=== PATIENT | male | born 1970 | race Caucasian/White ===

== ENCOUNTER → 2019-12-25 15:24 | Outpatient (BNVA) | payer OTHER, SELFPAY | PROVIDERS: Family Provider Nurse Practitioner Family; PCP Nurse Practitioner Family; Visit Provider Nurse Practitioner Family | DX: M25.551 Pain in right hip (principal); M25.552 Pain in left hip | CPT/HCPCS: 73502 ==

== ENCOUNTER → 2019-12-29 08:34 | Outpatient (BNVA) | payer OTHER, SELFPAY | PROVIDERS: Family Provider Nurse Practitioner Family; PCP Nurse Practitioner Family; Visit Provider Nurse Practitioner Family | DX: E55.9 Vitamin D deficiency, unspecified (principal); I10 Essential (primary) hypertension; E78.2 Mixed hyperlipidemia; R53.83 Other fatigue | CPT/HCPCS: 80053; 80061; 81001; 82306; 83036; 84443; 85025 ==

== ENCOUNTER 2020-01-01 10:05 | Outpatient (CLI) | payer OTHER, SELFPAY ==
--- NOTE | 2020-01-01 10:13 | XRR_ITS ---
PROCEDURE INFORMATION: Exam: XR Lumbosacral Spine, 2 or 3 Views Exam date and time: 01/01/2020 10:30 AM Age: 49 years old Clinical indication: Patient HX: Chronic low back pain; Additional info: Lumbar back pain TECHNIQUE: Imaging protocol: XR of the lumbosacral spine, 2 or 3 views. COMPARISON: No relevant prior studies available. FINDINGS: Vertebrae: Anatomic alignment. No instability. Degenerative change. Vasculature: Vascular calcification. Soft tissues: Unremarkable as visualized. XR/XR lumbar spine f/e only [id number] IMPRESSION: Degenerative change.
== END 2020-01-01 10:06 | disposition home or self-care (01) ==
LOC: RAD 10:09
PROVIDERS: PCP Nurse Practitioner Family; Visit Provider Nurse Practitioner Family
DX: M54.5 Low back pain (principal)
CPT/HCPCS: 72120

== ENCOUNTER → 2020-01-15 09:23 | Outpatient (BNVA) | payer OTHER, SELFPAY | PROVIDERS: PCP Nurse Practitioner Family; Referring Provider Licensed Practical Nurse; Visit Provider Anesthesiology Pain Medicine | DX: M47.816 Spondylosis without myelopathy or radiculopathy, lumbar region (principal); M54.9 Dorsalgia, unspecified | CPT/HCPCS: 99213 ==

== ENCOUNTER 2020-02-08 15:07 | Outpatient (CLI) | payer OTHER, SELFPAY ==
--- NOTE | 2020-02-08 15:11 | MR_ITS ---
WS: [id number] MRI LUMBAR SPINE NONCONTRAST TECHNIQUE: Sagittal T1, T2 and STIR imaging. Axial T1 and T2 imaging. CLINICAL INFORMATION: BACK PAIN COMPARISON: None. FINDINGS: Mild lumbar curve. No acute compression. Disc space narrowing worse at L3-L4, L4-L5 and L5-S1. L1-L2: Normal. L2-L3: Normal. L3-L4: Mild annular bulging. Mild facet arthropathy. Spinal canal and foramen are patent. L4-L5: Mild disc bulging with slight effacement of ventral thecal sac. Slight narrowing of the right subarticular recess. Mild right and no significant left foraminal narrowing. Mild facet arthropathy. L5-S1: Tiny shallow central protrusion with slight effacement of ventral thecal sac. Spinal canal and foramen are patent. Visualized pelvic bony structures: Normal. Paravertebral soft tissues: Normal. MR/MR lumbar spine wo con* [id number] IMPRESSION: 1. Mild lumbar curve. No acute compression. 2. Mild disc bulging worse at L3-L4, L4-L5 and L5-S1 with slight effacement of ventral thecal sac. 3. No significant spinal canal or foraminal narrowing. 4. Shallow central protrusion L5-S1 with slight effacement of ventral thecal s ac. 5. Mild facet arthropathy L3-L5.
== END 2020-02-08 15:08 | disposition home or self-care (01) ==
LOC: RADWPI 15:09
PROVIDERS: Family Provider Nurse Practitioner Family; PCP Nurse Practitioner Family; Visit Provider Licensed Practical Nurse
DX: M51.9 Unspecified thoracic, thoracolumbar and lumbosacral intervertebral disc disorder (principal); M54.9 Dorsalgia, unspecified; M47.816 Spondylosis without myelopathy or radiculopathy, lumbar region; M51.27 Other intervertebral disc displacement, lumbosacral region
CPT/HCPCS: 72148

== ENCOUNTER → 2020-02-12 12:55 | Outpatient (BNVA) | payer OTHER, SELFPAY | PROVIDERS: PCP Nurse Practitioner Family; Visit Provider Anesthesiology Pain Medicine | DX: M47.816 Spondylosis without myelopathy or radiculopathy, lumbar region (principal); M54.9 Dorsalgia, unspecified | CPT/HCPCS: 64493; 64494; 64495; J3490 ==

== ENCOUNTER → 2020-02-26 09:44 | Outpatient (BNVA) | payer OTHER, SELFPAY | PROVIDERS: PCP Nurse Practitioner Family; Visit Provider Anesthesiology Pain Medicine | DX: M51.17 Intervertebral disc disorders with radiculopathy, lumbosacral region (principal); M47.816 Spondylosis without myelopathy or radiculopathy, lumbar region; M54.9 Dorsalgia, unspecified; M25.552 Pain in left hip | CPT/HCPCS: 99214 ==

== ENCOUNTER → 2020-04-22 12:43 | Outpatient (BNVA) | payer OTHER, SELFPAY | PROVIDERS: PCP Nurse Practitioner Family; Visit Provider Anesthesiology Pain Medicine | DX: M47.816 Spondylosis without myelopathy or radiculopathy, lumbar region (principal); M51.17 Intervertebral disc disorders with radiculopathy, lumbosacral region; M54.9 Dorsalgia, unspecified | CPT/HCPCS: 64635; 64636; 99212; J1030 ==

== ENCOUNTER → 2020-05-06 12:41 | Outpatient (BNVA) | payer OTHER, SELFPAY | PROVIDERS: PCP Nurse Practitioner Family; Visit Provider Anesthesiology Pain Medicine | DX: M47.816 Spondylosis without myelopathy or radiculopathy, lumbar region (principal); M54.9 Dorsalgia, unspecified | CPT/HCPCS: 64635; 64636; J1030 ==

== ENCOUNTER → 2020-05-20 12:42 | Outpatient (BNVA) | payer OTHER, SELFPAY | PROVIDERS: PCP Nurse Practitioner Family; Visit Provider Anesthesiology Pain Medicine | DX: M47.816 Spondylosis without myelopathy or radiculopathy, lumbar region (principal); M51.17 Intervertebral disc disorders with radiculopathy, lumbosacral region; M54.9 Dorsalgia, unspecified | CPT/HCPCS: 99213 ==

== ENCOUNTER → 2020-08-19 10:41 | Outpatient (BNVA) | payer OTHER, SELFPAY | PROVIDERS: PCP Nurse Practitioner Family; Visit Provider Anesthesiology Pain Medicine | DX: M51.17 Intervertebral disc disorders with radiculopathy, lumbosacral region (principal); M54.9 Dorsalgia, unspecified; M47.816 Spondylosis without myelopathy or radiculopathy, lumbar region | CPT/HCPCS: 99214 ==

== ENCOUNTER → 2020-08-30 11:31 | Outpatient (BNVA) | payer OTHER, SELFPAY | PROVIDERS: PCP Nurse Practitioner Family; Visit Provider Nurse Practitioner Family | DX: M19.90 Unspecified osteoarthritis, unspecified site (principal); I10 Essential (primary) hypertension; E55.9 Vitamin D deficiency, unspecified; E78.2 Mixed hyperlipidemia; K92.1 Melena; N64.4 Mastodynia; Z79.899 Other long term (current) drug therapy | CPT/HCPCS: 80053; 80061; 81003; 82306; 83036; 84443; 85025; 85651; 86140; 86431 ==

== ENCOUNTER → 2020-09-15 12:35 | Outpatient (BNVA) | payer OTHER, SELFPAY | PROVIDERS: PCP Nurse Practitioner Family; Visit Provider Anesthesiology Pain Medicine | DX: M51.17 Intervertebral disc disorders with radiculopathy, lumbosacral region (principal); M47.816 Spondylosis without myelopathy or radiculopathy, lumbar region; M79.18 Myalgia, other site; M54.9 Dorsalgia, unspecified | CPT/HCPCS: 20553; 99214; J1030; J3490 ==

== ENCOUNTER → 2020-10-04 08:29 | Outpatient (BNVA) | payer OTHER, SELFPAY | PROVIDERS: PCP Nurse Practitioner Family; Visit Provider Internal Medicine | DX: Z01.812 Encounter for preprocedural laboratory examination (principal); K22.70 Barrett's esophagus without dysplasia; Z20.822 Contact with and (suspected) exposure to COVID-19 | CPT/HCPCS: 87635 ==

== ENCOUNTER → 2020-10-05 09:17 | Outpatient (BNVA) | payer OTHER, SELFPAY | PROVIDERS: PCP Nurse Practitioner Family; Visit Provider Anesthesiology Pain Medicine | DX: M79.18 Myalgia, other site (principal); M54.9 Dorsalgia, unspecified; M47.816 Spondylosis without myelopathy or radiculopathy, lumbar region | CPT/HCPCS: 20553; 99214; J1030; J3490 ==

== ENCOUNTER 2020-10-07 07:57 | Day surgery (SDC) | payer OTHER, SELFPAY ==
[2020-10-04 10:43] VITALS: BMI 31.1
[2020-10-07 08:30] VITALS: BP 154/109; PULSE 67; RESP 18; TEMP 36.8; O2SAT 99
[2020-10-07] MEDS: sodium chloride 0.9% 1,000 ML 30 ML IV (08:37)
--- NOTE | 2020-10-07 08:49 | ANES.PREANE2 ---
Pre-Anesthetic Assessment Pre-Anesthetic Assessment: Height/Weight: Height 1.8 m Weight 101.151 kg Temp Pulse Resp BP Pulse Ox 98.2 F 67 18 154/109 99 10/07/20 08:30 10/07/20 08:30 10/07/20 08:30 10/07/20 08:30 10/07/20 08:30 Preop Diagnosis: Barrets Esophagus Proposed Procedure: Operation Date: 10/07/20 09:00 Proposed Procedures p EGD 93108 K22.70(Not Applicable) - Rodo Hutchinson MD Familial anesthetic complications: none Was Beta Loreta taken within 24 hours: Yes Was Clonidine taken within 24 hours: N/A Last intake: Intake Last Liquid Date 10/06/20 Last Solid Date 10/06/20 Social: Social History: Alcohol (social 1x month) and Tobacco (Cannibis daily for stomach issues.) Exam: Pre-Anes Outpt Exam: alert, oriented x 3, clear to auscultation bilaterally and regular rate & rhythm Airway: Submandibular: WNL Cervical ROM: WNL MP: 1 Dentition: Chipped History/ROS: No significant history except as noted Pulmonary: Pulmonary: Cough and SOB (with activity) CV/HEM: CV/HEM: HTN : : None reported Hepatic: Hepatic: None reported GI: GI: GERD and Hiatus hernia Comments: martin's esophagus. Metabolic: Metabolic: DM (pre-diabetic per patient.), Hyperlipidemia and Morbid obesity Musc/skel: Musc/skel: Lower Back Pain and OA/DJD Neuropsych: Neuropsych: Anxiety and Depression Anesthetic Plan: ASA status: 3 Anesthesia: Anesthesia Evaluation and MAC Risk of > 500 ml blood loss (7ml/kg in children): No Meds/Allergies Current Medications: Current Medications Generic Name Dose Route Start Last Admin Trade Name Freq PRN Reason Stop Dose Admin Sodium Chloride 1,000 mls @ 30 ml s/hr 10/07/20 08:15 10/07/20 08:37 Sodium Chloride 0.9% IV 10/08/20 08:14 30 mls/hr .Q24H ANDREW Administration PFSH Anesthesia PFSH: Medical History Arthritis Constipation Essential hypertension Hip pain Lumbar disc disease Medication management Medication management Mixed hyperlipidemia Muscle spasm Tinea capitis Vitamin D deficiency Surgical History History of decompression of ulnar nerve Family History Mother Cancer Sister Cancer Other Diabetes Denies family history of Dementia Social History Smoking and tobacco status: former smoker Alcohol intake: never Marital status: Current occupational status: employed History of recent travel: No Data Anesthesia Cardiac Studies: No Data to Display
--- NOTE | 2020-10-07 09:11 | W.PM.OPSUD ---
Surgery/Procedure H&P Update DATE OF PROCEDURE: October 07, 2020 DATE H&P PERFORMED: 09/28/20 PREOP DIAGNOSIS: Barrets Esophagus PLANNED PROCEDURE: Operation Date: 10/07/20 09:00 Proposed Procedures p EGD 53065 K22.70(Not Applicable) - Rodo Hutchinson MD
[2020-10-07 09:34] VITALS: BP 147/93; PULSE 68; RESP 16; TEMP 37; O2SAT 97
--- NOTE | 2020-10-07 09:37 | ANE.PACU2 ---
Inpatient post-anesthesia follow up: Airway intact: Yes Vital signs: Temperature 98.2 F Pulse Rate 67 Respiratory Rate 18 Blood Pressure 154/109 Pulse Oximetry 99 Oxygen Delivery Me thod Room Air Oxygen Flow Rate Fraction of Inspir ed Oxygen Hydration adequate: Yes Nausea and vomiting: No Mental status: Baseline
[2020-10-07 09:50] VITALS: BP 156/82; PULSE 75; RESP 18; O2SAT 98
--- NOTE | 2020-10-07 10:17 | ANE.PACU2 ---
Inpatient post-anesthesia follow up: Airway intact: Yes Vital signs: Temperature 98.6 F Pulse Rate 75 Respiratory Rate 18 Blood Pressure 156/82 Pulse Oximetry 98 Oxygen Delivery Me thod Room Air Oxygen Flow Rate Fraction of Inspir ed Oxygen Hydration adequate: Yes Nausea and vomiting: No Pain level: 1 Mental status: Baseline
== END 2020-10-07 09:52 | disposition home or self-care (01) ==
PROVIDERS: PCP Nurse Practitioner Family; Visit Provider Internal Medicine
PROC: 0DJ08ZZ Inspection of Upper Intestinal Tract, Via Natural or Artificial Opening Endoscopic (ICD-10-PCS; CPT 43235; principal; 2020-10-07 09:00)
DX: K22.70 Barrett's esophagus without dysplasia (principal); M19.90 Unspecified osteoarthritis, unspecified site; I10 Essential (primary) hypertension; E78.2 Mixed hyperlipidemia; Z87.891 Personal history of nicotine dependence; E11.9 Type 2 diabetes mellitus without complications; E66.01 Morbid (severe) obesity due to excess calories; Z68.31 Body mass index [BMI] 31.0-31.9, adult
CPT/HCPCS: 43239; 88305; 96360; J2704; J7030

== ENCOUNTER → 2020-10-21 12:43 | Outpatient (BNVA) | payer OTHER, SELFPAY | PROVIDERS: PCP Nurse Practitioner Family; Visit Provider Anesthesiology Pain Medicine | DX: G89.29 Other chronic pain (principal); M53.3 Sacrococcygeal disorders, not elsewhere classified; M54.9 Dorsalgia, unspecified | CPT/HCPCS: G0260; J1040; J3490 ==

== ENCOUNTER → 2020-10-27 11:42 | Outpatient (BNVA) | payer OTHER, SELFPAY | PROVIDERS: PCP Nurse Practitioner Family; Visit Provider Nurse Practitioner Family | DX: J22 Unspecified acute lower respiratory infection (principal); R06.2 Wheezing; R49.0 Dysphonia; R06.02 Shortness of breath | CPT/HCPCS: 71046 ==

== ENCOUNTER → 2020-11-01 10:40 | Outpatient (BNVA) | payer OTHER, SELFPAY | PROVIDERS: PCP Nurse Practitioner Family; Visit Provider Anesthesiology Pain Medicine | DX: M47.816 Spondylosis without myelopathy or radiculopathy, lumbar region (principal); M54.9 Dorsalgia, unspecified; Z79.891 Long term (current) use of opiate analgesic | CPT/HCPCS: 99213 ==

== ENCOUNTER 2020-11-02 13:31 | Outpatient (CLI) | payer OTHER, SELFPAY ==
--- NOTE | 2020-11-02 13:39 | XR_ITS ---
WS: [id number] Lumbar spine, AP, both obliques, L5-S1 spot, flexion, extension and neutral lateral position, 11/03/19 21 Clinical Data: M51.9 - Unspecified thoracic, thoracolumbar and lumbosacral intervertebral disc disord er Comparison: Lumbar spine, 01/01/2020. Findings: No compression fractures or subluxation is seen. Degenerative disc narrowing at L3-L4, L4-L5 and L5-S 1. There is osteoarthritic change of the anterior aspect of the L3-L5 vertebral bodies. The transvers e processes and SI joints are normal. The oblique films show no spondylolysis. On flexion and extension there is no limitation of motion or subluxation. XR/XR lumbar spine 6V w f/e [id number] Impression: 1. Degenerative disc disease and osteoarthritis from L3 through S1. 2. Negative for spondylolysis. 3. Negative for limitation of motion or subluxation on flexion or extension.
== END 2020-11-02 13:32 | disposition home or self-care (01) ==
LOC: RAD 13:34
PROVIDERS: PCP Nurse Practitioner Family; Visit Provider Nurse Practitioner Family
DX: M51.9 Unspecified thoracic, thoracolumbar and lumbosacral intervertebral disc disorder (principal); M51.36 Other intervertebral disc degeneration, lumbar region; M47.817 Spondylosis without myelopathy or radiculopathy, lumbosacral region
CPT/HCPCS: 72114

== ENCOUNTER → 2020-11-15 11:02 | Outpatient (BNVA) | payer OTHER, SELFPAY | PROVIDERS: PCP Nurse Practitioner Family; Visit Provider Anesthesiology Pain Medicine | DX: G89.29 Other chronic pain (principal); M54.42 Lumbago with sciatica, left side; M54.41 Lumbago with sciatica, right side; M51.36 Other intervertebral disc degeneration, lumbar region; M47.816 Spondylosis without myelopathy or radiculopathy, lumbar region; Z79.891 Long term (current) use of opiate analgesic | CPT/HCPCS: 99214 ==

== ENCOUNTER 2020-11-30 08:36 | Outpatient (CLI) | payer OTHER, SELFPAY ==
--- NOTE | 2020-11-30 09:43 | CT_ITS ---
WS: [id number] CT ABDOMEN PELVIS TECHNIQUE: Contrast-enhanced CT of the abdomen and pelvis with coronal and sagittal reformatted image s. CLINICAL INFORMATION: R19.00 - Intra-abdominal and pelvic swelling, mass and lump, unspecified site COMPARISON: None. DLP: 1799.[address] scans at [facility] use at least one of these dose optimization techniques: automat ed exposure control; mA and/or kV adjustment per patient size (includes targeted exams where dose is matched to clinical indication); or iterative reconstruction. FINDINGS: Diffuse fatty infiltration of the liver. Mild hepatomegaly. Normal portal vein and splenic vein. Norm al GE junction. A few splenic granulomas. Fatty atrophy of the pancreas. Adrenal glands are normal. N ormal renal parenchymal enhancement. No hydronephrosis. Both ureters are decompressed. Mild aortic ca lcification. Normal caliber abdominal aorta. Lung bases are well aerated. Ectatic ventral abdominal wall with rectus abdominis diastases. Diastases measures approximately 4.8 cm in transverse dimension. Diastases extends from the level of the xiphoid to the sacrum. Tiny fat-c ontaining umbilical hernia. No herniated bowel. Normal sigmoid colon. No evidence of small or large bowel obstruction. Disc space narrowing worse at L3-L4 L4-L5 and L5-S1. CT/CT abdomen pelvis w con* [id number] IMPRESSION: 1. Mild hepatomegaly with diffuse fatty infiltration. 2. Ectatic ventral abdominal wall with rectus abdominis diastases. Inter-recti diastases measures approximately 4.8 cm. Diastases extends from the xiphoid to the sacrum. 3. Incidental fat-containing umbilical hernia. 4. Normal caliber abdominal aorta. 5. No abdominal or pelvic lymphadenopathy. 6. No hydronephrosis in either kidney. 7. Mild disc space narrowing L3-L4 L4-L5 and L5-S1.
[2020-11-30] MEDS: iohexol 300 mg/mL 50 mL Btl PO (09:44)
[2020-11-30] MEDS: iohexol 300 mg/mL 100 mL Btl IV (11:05)
== END 2020-11-30 08:37 | disposition home or self-care (01) ==
LOC: RADWPI 08:55 → RAD 10:06
PROVIDERS: PCP Nurse Practitioner Family; Visit Provider Surgery
DX: R19.00 Intra-abdominal and pelvic swelling, mass and lump, unspecified site (principal); R16.0 Hepatomegaly, not elsewhere classified; K76.0 Fatty (change of) liver, not elsewhere classified; K42.9 Umbilical hernia without obstruction or gangrene
CPT/HCPCS: 74177; Q9967

== ENCOUNTER 2020-11-30 08:48 | Outpatient (CLI) | payer OTHER, SELFPAY ==
--- NOTE | 2020-11-30 08:59 | MR_ITS ---
WS: [id number] MRI LUMBAR SPINE NONCONTRAST TECHNIQUE: Sagittal T1, T2 and STIR imaging. Axial T1 and T2 imaging. CLINICAL INFORMATION: M51.9 - Unspecified thoracic, thoracolumbar and lumbosacral intervertebral disc disorder COMPARISON: MRI January 2020 FINDINGS: Mild lumbar curve. No acute compression. No high-grade central canal stenosis. Disc space narrowing w orse at L3-L4, L4-L5, and L5-S1. L1-L2: Normal L2-L3: No significant disc bulging. Mild facet arthropathy. Spinal canal and foramen are patent. L3-L4: Mild disc space narrowing. Mild facet arthropathy. Spinal canal and foramen are patent. L4-L5: Mild disc bulging with mild disc space narrowing. Mild facet arthropathy. Spinal canal and for amen are patent. L5-S1: Mild disc bulging with osteophytic ridging eccentric to the right. Slight contact of the trave rsing right S1 nerve root. Mild facet arthropathy. Spinal canal is patent. Foramen are patent Visualized pelvic bony structures: Normal. Paravertebral soft tissues: Normal. No significant changes since January 2020 MR/MR lumbar spine wo con* [id number] IMPRESSION: 1. Mild lumbar curve. No acute compression. No high-grade central canal stenos is. 2. Right pericentral disc bulge L5-S1 slightly contacts the traversing S1 nerv e root. This is unchanged from January 2020. 3. Mild facet arthropathy L3-L5. 4. Overall no significant changes since January 2020.
== END 2020-11-30 08:49 | disposition home or self-care (01) ==
LOC: RADWPI 08:50
PROVIDERS: PCP Nurse Practitioner Family; Visit Provider Nurse Practitioner Family
DX: M51.9 Unspecified thoracic, thoracolumbar and lumbosacral intervertebral disc disorder (principal); M47.816 Spondylosis without myelopathy or radiculopathy, lumbar region; M51.27 Other intervertebral disc displacement, lumbosacral region
CPT/HCPCS: 72148

== ENCOUNTER → 2020-12-07 10:57 | Outpatient (BNVA) | payer OTHER, SELFPAY | PROVIDERS: PCP Nurse Practitioner Family; Visit Provider Anesthesiology Pain Medicine | DX: G89.29 Other chronic pain (principal); M54.42 Lumbago with sciatica, left side; M54.41 Lumbago with sciatica, right side; M47.816 Spondylosis without myelopathy or radiculopathy, lumbar region | CPT/HCPCS: 99214 ==

== ENCOUNTER → 2020-12-08 12:48 | Outpatient (BNVA) | payer OTHER, SELFPAY | PROVIDERS: PCP Nurse Practitioner Family; Visit Provider Anesthesiology Pain Medicine | DX: G89.29 Other chronic pain (principal); M79.18 Myalgia, other site; M54.16 Radiculopathy, lumbar region; M54.42 Lumbago with sciatica, left side; M54.41 Lumbago with sciatica, right side | CPT/HCPCS: 20552; 64483; 64484; 77002; J1030; J1100; J3490 ==

== ENCOUNTER → 2020-12-22 13:05 | Outpatient (BNVA) | payer BC, SELFPAY | PROVIDERS: PCP Nurse Practitioner Family; Visit Provider Anesthesiology Pain Medicine | DX: G89.29 Other chronic pain (principal); M54.42 Lumbago with sciatica, left side; M54.41 Lumbago with sciatica, right side; M47.816 Spondylosis without myelopathy or radiculopathy, lumbar region; Z87.891 Personal history of nicotine dependence; Z79.899 Other long term (current) drug therapy | CPT/HCPCS: 99214 ==

== ENCOUNTER → 2021-01-06 12:44 | Outpatient (BNVA) | payer BC, SELFPAY | PROVIDERS: PCP Nurse Practitioner Family; Visit Provider Anesthesiology Pain Medicine | DX: G89.29 Other chronic pain (principal); M51.17 Intervertebral disc disorders with radiculopathy, lumbosacral region; M47.816 Spondylosis without myelopathy or radiculopathy, lumbar region; M54.9 Dorsalgia, unspecified; Z87.891 Personal history of nicotine dependence | CPT/HCPCS: 64635; 64636; J1030 ==

== ENCOUNTER → 2021-01-20 09:48 | Outpatient (BNVA) | payer BC, SELFPAY | PROVIDERS: PCP Nurse Practitioner Family; Visit Provider Anesthesiology Pain Medicine | DX: G89.29 Other chronic pain (principal); M79.18 Myalgia, other site; M51.17 Intervertebral disc disorders with radiculopathy, lumbosacral region; M47.816 Spondylosis without myelopathy or radiculopathy, lumbar region; Z87.891 Personal history of nicotine dependence | CPT/HCPCS: 20553; 99213; J1030; J3490 ==

== ENCOUNTER → 2021-02-17 10:37 | Outpatient (BNVA) | payer BC, SELFPAY | PROVIDERS: PCP Nurse Practitioner Family; Visit Provider Anesthesiology Pain Medicine | DX: G89.29 Other chronic pain (principal); M79.18 Myalgia, other site; M51.17 Intervertebral disc disorders with radiculopathy, lumbosacral region; M47.816 Spondylosis without myelopathy or radiculopathy, lumbar region; Z79.891 Long term (current) use of opiate analgesic | CPT/HCPCS: 20553; 99214; J1030; J3490 ==

== ENCOUNTER → 2021-04-14 12:40 | Outpatient (BNVA) | payer BC, SELFPAY | PROVIDERS: PCP Nurse Practitioner Family; Visit Provider Anesthesiology Pain Medicine | DX: G89.29 Other chronic pain (principal); M51.17 Intervertebral disc disorders with radiculopathy, lumbosacral region; M47.816 Spondylosis without myelopathy or radiculopathy, lumbar region; Z79.891 Long term (current) use of opiate analgesic | CPT/HCPCS: 99213 ==

== ENCOUNTER 2021-04-24 18:03 | Emergency (ER) | payer BC, SELFPAY ==
[2021-04-24 18:32] VITALS: BP 129/85; PULSE 98; RESP 18; TEMP 36.7; O2SAT 98; BMI 27.8
--- NOTE | 2021-04-24 18:45 | ED_ITS ---
Documented by User: RUPALI Howard 04/24/21 20:58 HPI - Abdominal Pain General: Chief Complaint: Abdominal Pain Stated Complaint: ABD PAIN Time Seen by Provider: 04/24/21 18:44 History of Present Illness: HPI narrative: 51-year-old male patient comes in today with complaints of gastric discomfort. Patient reports for the last 3 days he has had significant abdominal pain that does improve with some positioning. Patient is also reported diarrhea for the last 3 days. Patient was concerned that he may have been exposed to infection when he moved his dog that he found when he got home on Saturday last week. Patient also has a history of Caballero's esophagus which he gets treated for and also received some pain medication for chronic back and shoulder pain. Patient appears in mild to moderate pain. Patient appears well. Associated Symptoms: Reports diarrhea Review of Systems General: Reports: 10 or more systems reviewed and unremarkable except in HPI and below GI: Reports: abdominal pain and diarrhea PFS ED PFSH: Medical History (Updated 04/24/21 @ 20:52 by RUPALI Howard) Abdominal pain Arthritis Constipation Essential hypertension Hip pain Lower respiratory infection Lumbar disc disease Medication management Medication management Mixed hyperlipidemia Muscle spasm Tinea capitis Ventral hernia Vitamin D deficiency Surgical History History of decompression of ulnar nerve Family History Mother Cancer Sister Cancer Other Diabetes Denies family history of Dementia Social History Smoking and tobacco status: current some day smoker Second hand smoke exposure: No Alcohol intake: never Marital status: Current occupational status: employed History of recent travel: No Physical Exam Const: COMMON NORMALS: no acute distress and patient oriented x3 GENERAL APPEARANCE: cooperative HENMT: COMMON NORMALS: normocephalic and Normal external nose present HEAD & SCALP: normal to inspection and normocephalic NOSE: Normal external nose present and Normal nares present MOUTH: Normal oral and palatal mucosa presen t THROAT: posterior oropharynx normal Eye: GENERAL EYE: appearance normal, both eyes and all related structures Neck/C-Spine: COMMON NORMALS: full ROM Lymph: LYMPHATIC: no lymphadenopathy noted Chest: COMMONS NORMALS: normal inspection of the chest Resp: COMMON NORMALS: normal respiratory effort and clear to auscultation bilaterally EFFORT & INSPECTION: Yes able to speak in complete sentences AUSCULTATION: clear to auscultation bilaterally Cardio: COMMON NORMALS: regular rate and regular rhythm RATE: regular rate RHYTHM: regular rhythm GI: AUSCULTATION: Yes Hyperactive bowel sounds present PALPATION: Yes Firmness to palpation present (GI) and Yes Tenderness to palpation present (GI) (mild generalized) : COMMON NORMALS: Yes no CVA tenderness BLADDER/KIDNEY EXAM: Yes no CVA tenderness Back/Pelvis: COMMON NORMALS: no CVA tenderness and thoracic and lumbar spine normal to inspection Extremity: COMMON NORMALS: normal to inspection Neuro: COMMON NORMALS: patient oriented x3 and moves all extremities Psych: COMMON NORMALS: mental status grossly normal and cooperative Skin: COMMON NORMALS: no rashes or lesions noted GENERAL SKIN EXAM: no rashes or lesions noted Course Vital Signs: Vital signs: Vital Signs Temperature 98.1 F 04/24/21 18:32 Pulse Rate 85 04/24/21 20:49 Respiratory Rate 18 04/24/21 20:49 Blood Pressure 130/83 04/24/21 20:49 Pulse Oximetry 96 04/24/21 20:49 MDM - Abdominal Pain MDM Narrative: Medical decision making narrative: 51-year-old male patient comes in with some generalized abdominal pain and diarrhea for 3 days. On exam patient appears well. Patient appears in mild discomfort. Bowel sounds are hyperactive. Differential diagnosis includes but not limited to gastroenteritis, colitis, diverticulitis. Laboratory values noted a mild elevation in white count at 10.8. CMP was unremarkable. Lipase was normal. Urinalysis was unremarkable. CT of the abdomen pelvis noted a colitis. Reviewed exam with patient recommended treatment with Cipro and Flagyl for the next 5 days. Encourage plenty of fluids and monitoring for worsening symptoms such as high fever or blood in vomit or stool. Patient reported understanding and agreed to plan. Patient did have some improvement in pain and discomfort with 2 mg of morphine, 4 of ondansetron, and 1 L of IV fluids. Lab Data: Labs: Lab Results 04/24/21 04/24/21 04/24/21 19:10 19:10 19:10 WBC 10.8 10^3/uL H 10 ^3/uL (4.0-10.0) RBC 5.53 10^6/uL H 10 ^6/uL (4.1-5.3) Hgb 17.3 g/dL H g/dL (11.7-16.6) Hct 49.6 % % (42.0-52.0) MCV 89.7 fl fl (80-94) MCH 31.3 pg pg (28.0-34.0) MCHC 34.9 g/dL g/dL (30.0-36.0) RDW 12.5 % % (12.1-15.1) Plt Count 284 10^3/cmm 10^3 /cmm (130-400) MPV 10.5 fL H fL (7.4-10.4) Neut % (Auto) 52.7 % % Lymph % (Auto) 30.6 % % Band[place] % (Auto) 12.0 % % Eos % (Auto) 3.7 % % Baso % (Auto) 0.4 % % Neut # (Auto) 5.68 10^3/uL 10^3 /uL (1.8-7.7) Lymph # (Auto) 3.3 10^3/uL 10^3/ uL (0.8-4.8) Band[place] # (Auto) 1.3 10^3/uL H 10^ 3/uL (0.2-0.9) Eos # (Auto) 0.4 10^3/uL 10^3/ uL (0.0-0.8) Baso # (Auto) 0.0 10^3/uL 10^3/ uL (0.0-0.1) Nucleated RBC % (a uto) 0 % % Nucleated RBCs # 0.0 /100WBC /100W BC Sodium 138 mmol/L mmol/L (136-145) Potassium 4.4 mmol/L mmol/L (3.5-5.1) Chloride 100 mmol/L mmol/L (98-107) Carbon Dioxide 23 mmol/L mmol/L (22-29) Anion Gap 19.4 H (5-19) BUN 13 mg/dL mg/dL (6-20) Creatinine 0.9 mg/dL mg/dL (0.7-1.2) GFR Calculation 88.6 mL/min L mL/ min (90-130) Glucose 101 mg/dL mg/dL (65-115) Calculated Osmolal ity 286 mOsm/kg mOsm/ kg (285-295) Lactic Acid 1.9 mmol/L mmol/L (0.5-2.2) Calcium 10.1 mg/dL mg/dL (8.5-10.5) Total Bilirubin 0.5 mg/dL mg/dL (0.15-1.2) AST 22 U/L U/L (0-40) ALT 26 U/L U/L (0-41) Alkaline Phosphata se 130 IU/L IU/L (40-130) Total Protein 7.4 g/dL g/dL (6.6-8.7) Albumin 5.0 g/dL g/dL (3.5-5.2) Globulin 2.4 g/dL g/dL (1.3-4.6) Lipase 21 U/L U/L (13-60) Urine Color Urine Appearance Urine pH Ur Specific Gravit y Urine Protein Urine Glucose (UA) Urine Ketones Urine Blood Urine Nitrate Urine Bilirubin Urine Urobilinogen Ur Leukocyte Minal ase 04/24/21 20:45 WBC RBC Hgb Hct MCV MCH MCHC RDW Plt Count MPV Neut % (Auto) Lymph % (Auto) [place] % (Auto) Eos % (Auto) Baso % (Auto) Neut # (Auto) Lymph # (Auto) [place] # (Auto) Eos # (Auto) Baso # (Auto) Nucleated RBC % (a uto) Nucleated RBCs # Sodium Potassium Chloride Carbon Dioxide Anion Gap BUN Creatinine GFR Calculation Glucose Calculated Osmolal ity Lactic Acid Calcium Total Bilirubin AST ALT Alkaline Phosphata se Total Protein Albumin Globulin Lipase Urine Color Yellow (Yellow) Urine Appearance Clear (CLEAR) Urine pH 5 (5-7) Ur Specific Gravit y 1.020 (1.005-1.030) Urine Protein Neg (Negative) Urine Glucose (UA) Norm (Normal) Urine Ketones Negative (Negative) Urine Blood Neg (Negative) Urine Nitrate Negative (Negative) Urine Bilirubin Neg (Negative) Urine Urobilinogen Norm mg/dL mg/dL (Negative) Ur Leukocyte Minal ase Negative (Negative) Discharge Plan Discharge Patient Disposition: Home Clinical Impression: Colitis Condition: Stable Prescriptions: New metronidazole 500 mg tablet 500 mg PO BID 5 Days Qty: 10 RF: 0 Cipro 500 mg tablet 500 mg PO BID Qty: 10 RF: 0 No Action medical THC as directed RF: 0 Advair HFA 230-21 mcg/actuation HFA aerosol inhaler 2 inh inhalation BID 90 Days Qty: 8 RF: 1 gabapentin 600 mg tablet 600 mg PO TID Qty: 90 RF: 1 tizanidine 4 mg tablet 4 mg PO BID PRN (Reason: muscle spasticity) Qty: 60 RF: 0 tramadol 50 mg tablet 50 mg PO BID PRN (Reason: pain) Qty: 45 RF: 1 carvedilol [Coreg] 3.125 mg tablet 3.125 mg PO DAILY 90 Days Qty: 90 RF: 1 polyethylene glycol 3350 [Miralax] 17 gram/dose powder 17 g PO DAILY 90 Days Qty: 1530 RF: 1 rosuvastatin 10 mg tablet 10 mg PO DAILY Qty: 30 RF: 5 losartan 50 mg tablet See Rx Instructions .ROUTE .COMPLEX Qty: 90 RF: 1 celecoxib 100 mg capsule See Rx Instructions .ROUTE .COMPLEX Qty: 60 RF: 3 docusate sodium 100 mg capsule 100 mg PO BID 90 Days Qty: 180 RF: 1 Zyrtec 10 mg capsule 10 mg PO DAILY PRN (Reason: allergy symptoms) Qty: 90 RF: 1 Dexilant 60 mg capsule,biphase delayed releas See Rx Instructions .ROUTE .COMPLEX Qty: 90 RF: 1 albuterol sulfate 90 mcg/actuation HFA aerosol inhaler See Rx Instructions .ROUTE .COMPLEX Qty: 8.5 RF: 2 hydrochlorothiazide 12.5 mg tablet See Rx Instructions .ROUTE .COMPLEX Qty: 90 RF: 0 Discharge Orders: Discharge ED (Routine); Ordered 04/24/21 Ordered By: Fortunato Pavon Referrals: JOHN Zuniga, COPY LATHE OPERATOR [Primary Care Provider] - Discharge Diet: Usual diet Discharge Activity: Increase activity as tolerated Patient Instructions: Diarrhea - Adult, Opioid Safety Activity Restrictions/Additional Instructions: Take antibiotics as directed. Drink plenty of fluids. Use [id number] Imodium to help with diarrhea as needed. Monitor for fever. If you start work running a really high fever greater than 100.4 or having blood in vomit or stool you need to be reevaluated. Follow-up with primary care as needed. Return to the ER for new concerns. Coding Level of Care Code ED Nuisance Wildlife Specialist for Chg Fwd Exam Comprehensive Documented by User: Kassandra Cuenca MD 04/25/21 02:26 HPI - Abdominal Pain General: Chief Complaint: Abdominal Pain Stated Complaint: ABD PAIN Time Seen by Provider: 04/24/21 18:44 PFSH ED PFSH: Medical History (Updated 04/24/21 @ 20:52 by RUPALI Howard) Abdominal pain Arthritis Constipation Essential hypertension Hip pain Lower respiratory infection Lumbar disc disease Medication management Medication management Mixed hyperlipidemia Muscle spasm Tinea capitis Ventral hernia Vitamin D deficiency Surgical History History of decompression of ulnar nerve Family History Mother Cancer Sister Cancer Other Diabetes Denies family history of Dementia Social History Smoking and tobacco status: current some day smoker Second hand smoke exposure: No Alcohol intake: never Marital status: Current occupational status: employed History of recent travel: No Course Vital Signs: Vital signs: Vital Signs Temperature 98.1 F 04/24/21 18:32 Pulse Rate 85 04/24/21 20:49 Respiratory Rate 18 04/24/21 20:49 Blood Pressure 130/83 04/24/21 20:49 Pulse Oximetry 96 04/24/21 20:49 MDM - Abdominal Pain Lab Data: Labs: Lab Results 04/24/21 04/24/21 04/24/21 19:10 19:10 19:10 WBC 10.8 10^3/uL H 10 ^3/uL (4.0-10.0) RBC 5.53 10^6/uL H 10 ^6/uL (4.1-5.3) Hgb 17.3 g/dL H g/dL (11.7-16.6) Hct 49.6 % % (42.0-52.0) MCV 89.7 fl fl (80-94) MCH 31.3 pg pg (28.0-34.0) MCHC 34.9 g/dL g/dL (30.0-36.0) RDW 12.5 % % (12.1-15.1) Plt Count 284 10^3/cmm 10^3 /cmm (130-400) MPV 10.5 fL H fL (7.4-10.4) Neut % (Auto) 52.7 % % Lymph % (Auto) 30.6 % % Band[place] % (Auto) 12.0 % % Eos % (Auto) 3.7 % % Baso % (Auto) 0.4 % % Neut # (Auto) 5.68 10^3/uL 10^3 /uL (1.8-7.7) Lymph # (Auto) 3.3 10^3/uL 10^3/ uL (0.8-4.8) Band[place] # (Auto) 1.3 10^3/uL H 10^ 3/uL (0.2-0.9) Eos # (Auto) 0.4 10^3/uL 10^3/ uL (0.0-0.8) Baso # (Auto) 0.0 10^3/uL 10^3/ uL (0.0-0.1) Nucleated RBC % (a uto) 0 % % Nucleated RBCs # 0.0 /100WBC /100W BC Sodium 138 mmol/L mmol/L (136-145) Potassium 4.4 mmol/L mmol/L (3.5-5.1) Chloride 100 mmol/L mmol/L (98-107) Carbon Dioxide 23 mmol/L mmol/L (22-29) Anion Gap 19.4 H (5-19) BUN 13 mg/dL mg/dL (6-20) Creatinine 0.9 mg/dL mg/dL (0.7-1.2) GFR Calculation 88.6 mL/min L mL/ min (90-130) Glucose 101 mg/dL mg/dL (65-115) Calculated Osmolal ity 286 mOsm/kg mOsm/ kg (285-295) Lactic Acid 1.9 mmol/L mmol/L (0.5-2.2) Calcium 10.1 mg/dL mg/dL (8.5-10.5) Total Bilirubin 0.5 mg/dL mg/dL (0.15-1.2) AST 22 U/L U/L (0-40) ALT 26 U/L U/L (0-41) Alkaline Phosphata se 130 IU/L IU/L (40-130) Total Protein 7.4 g/dL g/dL (6.6-8.7) Albumin 5.0 g/dL g/dL (3.5-5.2) Globulin 2.4 g/dL g/dL (1.3-4.6) Lipase 21 U/L U/L (13-60) Urine Color Urine Appearance Urine pH Ur Specific Gravit y Urine Protein Urine Glucose (UA) Urine Ketones Urine Blood Urine Nitrate Urine Bilirubin Urine Urobilinogen Ur Leukocyte Minal ase 04/24/21 20:45 WBC RBC Hgb Hct MCV MCH MCHC RDW Plt Count MPV Neut % (Auto) Lymph % (Auto) [place] % (Auto) Eos % (Auto) Baso % (Auto) Neut # (Auto) Lymph # (Auto) [place] # (Auto) Eos # (Auto) Baso # (Auto) Nucleated RBC % (a uto) Nucleated RBCs # Sodium Potassium Chloride Carbon Dioxide Anion Gap BUN Creatinine GFR Calculation Glucose Calculated Osmolal ity Lactic Acid Calcium Total Bilirubin AST ALT Alkaline Phosphata se Total Protein Albumin Globulin Lipase Urine Color Yellow (Yellow) Urine Appearance Clear (CLEAR) Urine pH 5 (5-7) Ur Specific Gravit y 1.020 (1.005-1.030) Urine Protein Neg (Negative) Urine Glucose (UA) Norm (Normal) Urine Ketones Negative (Negative) Urine Blood Neg (Negative) Urine Nitrate Negative (Negative) Urine Bilirubin Neg (Negative) Urine Urobilinogen Norm mg/dL mg/dL (Negative) Ur Leukocyte Minal ase Negative (Negative) Discharge Plan Discharge Patient Disposition: Home Clinical Impression: Colitis Condition: Stable Prescriptions: New metronidazole 500 mg tablet 500 mg PO BID 5 Days Qty: 10 RF: 0 Cipro 500 mg tablet 500 mg PO BID Qty: 10 RF: 0 No Action medical THC as directed RF: 0 Advair HFA 230-21 mcg/actuation HFA aerosol inhaler 2 inh inhalation BID 90 Days Qty: 8 RF: 1 gabapentin 600 mg tablet 600 mg PO TID Qty: 90 RF: 1 tizanidine 4 mg tablet 4 mg PO BID PRN (Reason: muscle spasticity) Qty: 60 RF: 0 tramadol 50 mg tablet 50 mg PO BID PRN (Reason: pain) Qty: 45 RF: 1 carvedilol [Coreg] 3.125 mg tablet 3.125 mg PO DAILY 90 Days Qty: 90 RF: 1 polyethylene glycol 3350 [Miralax] 17 gram/dose powder 17 g PO DAILY 90 Days Qty: 1530 RF: 1 rosuvastatin 10 mg tablet 10 mg PO DAILY Qty: 30 RF: 5 losartan 50 mg tablet See Rx Instructions .ROUTE .COMPLEX Qty: 90 RF: 1 celecoxib 100 mg capsule See Rx Instructions .ROUTE .COMPLEX Qty: 60 RF: 3 docusate sodium 100 mg capsule 100 mg PO BID 90 Days Qty: 180 RF: 1 Zyrtec 10 mg capsule 10 mg PO DAILY PRN (Reason: allergy symptoms) Qty: 90 RF: 1 Dexilant 60 mg capsule,biphase delayed releas See Rx Instructions .ROUTE .COMPLEX Qty: 90 RF: 1 albuterol sulfate 90 mcg/actuation HFA aerosol inhaler See Rx Instructions .ROUTE .COMPLEX Qty: 8.5 RF: 2 hydrochlorothiazide 12.5 mg tablet See Rx Instructions .ROUTE .COMPLEX Qty: 90 RF: 0 Discharge Orders: Discharge ED (Routine); Ordered 04/24/21 Ordered By: Fortunato Pavon Referrals: JOHN Zuniga, COPY LATHE OPERATOR [Primary Care Provider] - Discharge Diet: Usual diet Discharge Activity: Increase activity as tolerated Patient Instructions: Diarrhea - Adult, Opioid Safety Activity Restrictions/Additional Instructions: Take antibiotics as directed. Drink plenty of fluids. Use [id number] Imodium to help with diarrhea as needed. Monitor for fever. If you start work running a really high fever greater than 100.4 or having blood in vomit or stool you need to be reevaluated. Follow-up with primary care as needed. Return to the ER for new concerns. Coding Level of Care Code ED Nuisance Wildlife Specialist for Camelia Fwbayron Exam Comprehensive
--- NOTE | 2021-04-24 18:55 | CTR_ITS ---
PROCEDURE INFORMATION: Exam: CT Abdomen And Pelvis With Contrast Exam date and time: 04/24/2021 6:55 PM Age: 51 years old Clinical indication: Nausea and other: Diarrhea; Abdominal pain; Prior surgery; Surgery type: Polyps removed; Additional info: Generalized abd pain, diarrhea TECHNIQUE: Imaging protocol: Computed tomography of the abdomen and pelvis with contrast. Radiation optimization: All CT scans at this facility use at least one of these dose optimization techniques: automated exposure control; mA and/or kV adjustment per patient size (includes targeted exams where dose is matched to clinical indication); or iterative reconstruction. Contrast material: OMNI 300; Contrast volume: 95 ml; Contrast route: INTRAVENOUS (IV); COMPARISON: CT abdomen pelvis w con* [id number] 11/30/2020 11:03 AM RADIATION DOSE METRICS: Total DLP (mGy-cm): 1755.58 FINDINGS: Lungs: There is mild ground-glass opacity in the lung bases compatible with unchanged probable scarring. Heart: There is a small pericardial fluid collection present. Mediastinal space: A small hiatal hernia is present. Liver: There is a diffuse decrease in hepatic parenchymal density, consistent with fatty infiltration. Gallbladder and bile ducts: Normal. No calcified stones. No ductal dilation. Pancreas: Normal. No ductal dilation. Spleen: Normal. No splenomegaly. Adrenal glands: Normal. No mass. Kidneys and ureters: There is no evidence of hydronephrosis. There is no evidence of renal calcifications. There is a probable extrarenal pelvis on the left. Stomach and bowel: There is mild wall thickening of the ascending and transverse colon with haziness of the adjacent fat compatible with mild colitis. The remaining colon is nearly collapsed with minimal wall thickening that may reflect very mild colitis or just lack of distension. There is no evidence of intestinal perforation or obstruction. Appendix: A normal appendix is identified. Intraperitoneal space: Unremarkable. No free air. No significant fluid collection. Vasculature: Unremarkable.No abdominal aortic aneurysm. Lymph nodes: Multiple subcentimeter lymph nodes are also noted in the right lower quadrant compatible with reactive changes/adenitis. No pathologic adenopathy. Urinary bladder: Unremarkable as visualized. Reproductive: Unremarkable as visualized. Bones/joints: Osteopenia and moderate degenerative changes in the spine are noted. No acute bony abnormality. Soft tissues: There are small bilateral fat filled inguinal hernias. There is a fat-containing umbilical hernia. Unchanged diastasis of the rectus abdominus muscles is noted. CT/CT abdomen pelvis w con* [id number] IMPRESSION: 1. There is mild wall thickening of the ascending and transverse colon with haziness of the adjacent fat compatible with mild colitis. 2. Multiple subcentimeter lymph nodes are also noted in the right lower quadrant compatible with reactive changes/adenitis. Radiation Dose CTDIVOL = (mGy): DLP = 1755.58 (mGy-cm)
[2021-04-24 19:11] VITALS: BP 122/86; RESP 16; O2SAT 96
[2021-04-24] MEDS: iohexol 300 mg/mL 100 mL Btl IV (19:17)
[2021-04-24 19:25] LABS: Basophils % 0.4 %; Eosinophils # 0.4 10^3/uL (0.0-0.8); Eosinophils % 3.7 %; Hematocrit 49.6 % (42.0-52.0); Hemoglobin 17.3 g/dL (11.7-16.6); Lymphocytes # 3.3 10^3/uL (0.8-4.8); Lymphocytes % 30.6 %; Mean Corpuscular HGB Conc 34.9 g/dL (30.0-36.0); Mean Corpuscular Hemoglobin 31.3 pg (28.0-34.0); Mean Corpuscular Volume 89.7 fl (80-94); Mean Platelet Volume 10.5 fL (7.4-10.4); Monocytes # 1.3 10^3/uL (0.2-0.9); Neutrophils # 5.68 10^3/uL (1.8-7.7); Neutrophils % 52.7 %; Nucleated Red Blood Cells % 0 %; Platelet Count 284 10^3/cmm (130-400); Red Blood Count 5.53 10^6/uL (4.1-5.3); Red Cell Distribution Width 12.5 % (12.1-15.1); White Blood Count 10.8 10^3/uL (4.0-10.0)
[2021-04-24 19:44] LABS: Lactic Sepsis W/Reflex 1.9 mmol/L (0.5-2.2)
[2021-04-24] MEDS: lidocaine 2% viscous 15 ML, aluminum-mag hydrox-simethicon 30 ML, sucralfate oral liq 1 GM PO (20:02)
[2021-04-24] MEDS: sodium chloride 0.9% 1,000 ML 999 ML IV (20:09)
[2021-04-24 20:15] VITALS: RESP 18
[2021-04-24] MEDS: morphine 4 mg/mL SDV 1 mL 2 MG IVP (20:15)
[2021-04-24] MEDS: ondansetron 2 mg/ML SDV 2 mL 4 MG IVP (20:16)
[2021-04-24 20:35] LABS: Alanine Aminotransferase 26 U/L (0-41); Alkaline Phosphatase 130 IU/L (40-130); Anion Gap 19.4 (5-19); Aspartate Amino Transferase 22 U/L (0-40); Blood Urea Nitrogen 13 mg/dL (6-20); Calcium 10.1 mg/dL (8.5-10.5); Carbon Dioxide 23 mmol/L (22-29); Chloride 100 mmol/L (98-107); Globulin 2.4 g/dL (1.3-4.6); Glomerular Filtration Rate 88.6 mL/min (90-130); Glucose 101 mg/dL (65-115); Lipase 21 U/L (13-60); Osmolality Calculated 286 mOsm/kg (285-295); Potassium 4.4 mmol/L (3.5-5.1); Sodium 138 mmol/L (136-145); Total Bilirubin 0.5 mg/dL (0.15-1.2); Total Protein 7.4 g/dL (6.6-8.7)
[2021-04-24 20:49] VITALS: BP 130/83; PULSE 85; RESP 18; O2SAT 96
[2021-04-24 20:49] LABS: Add Urine Microscopic? NO; Charge for UA Resulting for Rev
[2021-04-24 20:54] LABS: Bilirubin Urine Neg (Negative); Blood Urine Neg (Negative); Glucose Urine UA Norm (Normal); Ketones Urine Negative (Negative); Leukocyte Esterase Urine Negative (Negative); Nitrate Urine Negative (Negative); Protein Urine Neg (Negative); Urine Appearance Clear (CLEAR); Urine Color Yellow (Yellow); Urobilinogen Urine Norm (Negative); pH Urine 5 (5-7)
[2021-04-24] MEDS: ciprofloxacin 500 mg Tablet PO (21:21)
[2021-04-24] MEDS: metroNIDAZOLE 500 MG Tablet PO (21:21)
== END 2021-04-24 21:42 | disposition home or self-care (01) ==
PROVIDERS: Emergency Provider Nurse Practitioner Family; PCP Nurse Practitioner Family
DX: K52.9 Noninfective gastroenteritis and colitis, unspecified (principal); I10 Essential (primary) hypertension; E78.2 Mixed hyperlipidemia; F17.210 Nicotine dependence, cigarettes, uncomplicated
CPT/HCPCS: 74177; 80053; 81003; 83605; 83690; 85025; 87040; 96361; 96374; 96375; 99284; J2270; J2405; J7030; Q9967

== ENCOUNTER → 2021-06-08 09:37 | Outpatient (BNVA) | payer BC, SELFPAY | PROVIDERS: PCP Nurse Practitioner Family; Visit Provider Anesthesiology Pain Medicine | DX: G89.29 Other chronic pain (principal); M54.42 Lumbago with sciatica, left side; M54.41 Lumbago with sciatica, right side; M47.816 Spondylosis without myelopathy or radiculopathy, lumbar region; Z79.899 Other long term (current) drug therapy; Z79.891 Long term (current) use of opiate analgesic | CPT/HCPCS: 99214 ==

== ENCOUNTER → 2022-02-22 14:12 | Outpatient (BNVA) | payer SELFPAY | PROVIDERS: PCP Nurse Practitioner Family; Visit Provider Family Medicine | DX: K59.00 Constipation, unspecified (principal); R06.02 Shortness of breath; R49.0 Dysphonia; J22 Unspecified acute lower respiratory infection; R06.2 Wheezing; M25.561 Pain in right knee; M25.562 Pain in left knee; Z79.899 Other long term (current) drug therapy | CPT/HCPCS: 80307 ==

== ENCOUNTER → 2022-08-14 15:16 | Outpatient (BNVA) | payer OTHER, MEDICAID, SELFPAY | PROVIDERS: Referring Provider Nurse Practitioner; Visit Provider Orthopaedic Surgery | DX: M48.07 Spinal stenosis, lumbosacral region (principal) | CPT/HCPCS: 72110 ==

== ENCOUNTER 2022-09-07 15:00 | Outpatient (CLI) | payer MEDICAID, SELFPAY ==
--- NOTE | 2022-09-07 15:15 | MR_ITS ---
WS: [id number] MRI LUMBAR SPINE NONCONTRAST TECHNIQUE: Sagittal T1, T2 and STIR imaging. Axial T1 and T2 imaging. CLINICAL INFORMATION: low back pain COMPARISON: MRI November 30, 2020 FINDINGS: Mild lumbar curve. No acute compression. No high-grade central canal stenosis. Mild disc bulging L4-L 5 and L5-S1. L1-L2: Mild disc bulging with osteophytic ridging. Mild facet arthropathy. Spinal canal and foramen a re patent. L2-L3: Mild facet arthropathy. Spinal canal and foramen are patent. L3-L4: Mild disc bulging with slight effacement of the ventral thecal sac. Mild facet arthropathy. Sp inal canal and foramen are patent. L4-L5: Mild disc bulging and osteophytic ridging. Slight effacement of ventral thecal sac. Slight guerita rowing of the RIGHT subarticular recess. Foramen are patent. Mild facet arthropathy. L5-S1: Annular bulging with slight effacement of ventral thecal sac. Slight encroachment traversing R IGHT S1 nerve root. Spinal canal and foramen are patent. Mild facet arthropathy. Visualized pelvic bony structures: Normal. Paravertebral soft tissues: Normal. Tiny central protrusions in the thoracic spinal editorial cartoonist imaging more prominent at T4-T5 with slight con tact of the thoracic cord. MR/MR lumbar spine wo con* [id number] IMPRESSION: Overall no significant changes since November 30, 2020 1. Mild lumbar curve. No acute compression. No high-grade central canal stenos is. 2. Mild annular bulging L4-L5 with slight narrowing of the RIGHT subarticular recess and slight encroachment traversing RIGHT L5 nerve root. 3. Mild annular bulge L5-S1 with shallow RIGHT pericentral bulging slightly en croaches on the RIGHT S1 nerve root unchanged. 4. Mild facet arthropathy L3-L4 unchanged.
== END 2022-09-07 15:01 | disposition home or self-care (01) ==
LOC: RAD 15:01
PROVIDERS: Visit Provider Orthopaedic Surgery
DX: M51.26 Other intervertebral disc displacement, lumbar region (principal); M51.27 Other intervertebral disc displacement, lumbosacral region; M47.816 Spondylosis without myelopathy or radiculopathy, lumbar region
CPT/HCPCS: 72148

== ENCOUNTER → 2022-10-19 11:01 | Outpatient (BNVA) | payer OTHER, MEDICAID, SELFPAY | PROVIDERS: PCP Nurse Practitioner Family; Visit Provider Nurse Practitioner Family | DX: M79.671 Pain in right foot (principal); K22.70 Barrett's esophagus without dysplasia; M67.912 Unspecified disorder of synovium and tendon, left shoulder | CPT/HCPCS: 73630 ==

== ENCOUNTER 2024-03-31 11:24 | Emergency (ER) | payer BC, SELFPAY ==
[2024-03-31] VITALS (10 sets, daily range): BP systolic 154–180; BP diastolic 84–100; PULSE 51–86; RESP 17–24; TEMP 36.4; O2SAT 97–100; BMI 27.8
--- NOTE | 2024-03-31 11:49 | CT_ITS ---
WS: [id number] CT ABDOMEN PELVIS TECHNIQUE: Noncontrast CT of the abdomen and pelvis with coronal and sagittal reformatted images. CLINICAL INFORMATION: R groin/abdominal pain COMPARISON: CT abdomen pelvis 04/24/2021 DLP: 764.[address] scans at [facility] use at least one of these dose optimization techniques: automated e xposure control; mA and/or kV adjustment per patient size (includes targeted exams where dose is matc hed to clinical indication); or iterative reconstruction. FINDINGS: Hepatomegaly. Diffuse fatty infiltration of the liver. Tiny esophageal hiatal hernia. Spleen granulom as. Adrenal glands are normal. No hydronephrosis in either kidney. Fatty atrophy of the pancreas. Aor tic calcification. Fat-containing umbilical hernia the small amount of induration. Normal appendix in the RIGHT lower quadrant. Incidental fat-containing inguinal hernias. Normal appendix. CT/CT kidney stone [id number] IMPRESSION: 1. No hydronephrosis in either kidney. No obstructing renal or ureteral calcul i. 2. Hepatomegaly. 3. Fat-containing umbilical hernia with a small amount of induration. 4. Incidental fat-containing inguinal hernias. No herniated bowel.
--- NOTE | 2024-03-31 11:49 | W.ED.MALEGU ---
HPI - Male Genitourinary General: Chief complaint: Urogenital-Male Stated complaint: pelvic pain Time Seen by Provider: 03/31/24 11:31 Source: patient Mode of arrival: ambulatory Limitations: no limitations History of Present Illness: Patient is a 54-year-old male presents to ED today with a complaint of right abdominal and groin pain. Patient states a few days ago he began developing right flank pain that has since moved into his right abdomen and right groin. He does have a history of kidney and ureter stones. Patient was initially seen at the [facility] clinic in [place] and referred to the emergency department. Patient states today he has taken 1600 mg of ibuprofen and Toradol all without improvement of his pain. He arrives visibly uncomfortable. He feels nauseous. Reports known abdominal hernias and is seeing a specialist in [place] for these. MD Complaint: other (possible ureter stone) Onset (ago): day(s) Duration: constant Location: right inguinal region, right flank and abdomen Severity: severe Severity scale (1-10): >10 Quality: sharp and stabbing Relieving factors: none Exacerbating factors: none Associated symptoms: Reports nausea; Deny vomiting Related Data Home Medications Medication Instructions Recorded Confirmed medical THC 1 unit as directed PRN 01/15/20 03/31/24 albuterol sulfate 90 mcg/actuation 1 - 2 puff inhalation Q4H PRN 03/31/24 03/31/24 aerosol inhaler Shortness Of Breath Or Wheezing fluticasone 250 mcg-salmeterol 50 1 inh inhalation BID 03/31/24 03/31/24 mcg/dose blistr powdr for inhalation (Advair Diskus) pantoprazole 40 mg tablet,delayed 40 mg PO DAILY 03/31/24 03/31/24 release (Protonix) tizanidine 4 mg tablet 4 mg PO BID PRN muscle spasms 03/31/24 03/31/24 trazodone 100 mg tablet 100 mg PO BEDTIME PRN Insomnia 03/31/24 03/31/24 Previous Rx's Medication Instructions Recorded docusate sodium 100 mg capsule 100 mg PO BID 90 days #180 caps 02/14/24 hydrocodone 5 mg-acetaminophen 325 1 tab PO .q 4-6 PRN pain #20 tabs 03/31/24 mg tablet ondansetron 4 mg disintegrating 4 mg PO Q8H PRN nausea and 03/31/24 tablet vomiting #14 tabs Allergies Allergy/AdvReac Type Severity Reaction Status Date / Time hydrocodone Allergy RASH / Verified 03/31/24 08:36 ITCHING oxycodone Allergy ADR-Itching Verified 03/31/24 08:36 zolpidem [From Ambien] Allergy unknown Verified 03/31/24 08:36 Review of Systems Const: Denies: fever(s), chills, body aches, fatigue or malaise Card: Denies: chest pain Resp: Denies: dyspnea GI: Reports: abdominal pain and nausea; Denies: vomiting, diarrhea or change in bowel habits : Reports: flank pain, urinary urgency and urinary hesitancy; Denies: testicular pain, testicular mass or scrotal swelling Musc: Reports: back pain (R flank); Denies: neck pain, extremity pain, extremity swelling, joint pain or joint swelling Skin/Breast: Denies: rash Neuro: Denies: headache(s) or dizziness PFSH ED PFSH: Medical History Colon polyps Acute bacterial sinusitis Gastroesophageal reflux disease SI (sacroiliac) joint dysfunction Opioid contract exists Abdominal pain Lower respiratory infection Ventral hernia Medication management Tinea capitis Arthritis Muscle spasm Lumbar disc disease Medication management Vitamin D deficiency Mixed hyperlipidemia Constipation Essential hypertension Hip pain Surgical History History of colonoscopy 2019 History of esophagogastroduodenoscopy 2019 History of right knee surgery History of decompression of ulnar nerve Family History Mother Cancer Sister Cancer Other Diabetes Denies family history of Dementia Social History Smoking and tobacco/nicotine status: unknown if used tobacco/nicotine Second hand smoke exposure: No Alcohol intake: never Substance/Drug Use: current Substance/Drug use frequency: daily Other substance/drug use details: Medical THC 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 Marital status: Current occupational status: employed Physical Exam Const: COMMON NORMALS: patient oriented x3, no limitations, alert and well nourished GENERAL APPEARANCE: cooperative and in distress (in significant discomfort due to pain) ORIENTATION/CONSCIOUSNESS: Yes awake, Yes oriented to person, Yes oriented to place and Yes oriented to time Resp: COMMON NORMALS: normal respiratory effort and clear to auscultation bilaterally AUSCULTATION: clear to auscultation bilaterally Cardio: COMMON NORMALS: regular rhythm RATE: bradycardic RHYTHM: regular rhythm GI: COMMON NORMALS: Soft to palpation, No hepatosplenomegaly present and no masses INSPECTION: Yes other (periumbilical hernia) AUSCULTATION: Yes normoactive bowel sounds PALPATION: Yes Soft to palpation, Yes Tenderness to palpation present (GI) (RLQ/inguinal), Yes Guarding due to palpation present (GI), No Rigid due to palpation and Yes No hepatosplenomegaly present : BLADDER/KIDNEY EXAM: Yes CVA tenderness on the right Back/Pelvis: COMMON NORMALS: thoracic and lumbar spine normal to inspection GENERAL BACK: Yes CVA tenderness Extremity: GENERAL: Yes normal exam except as noted Neuro: DON COMA SCALE: document GCS findings Don coma scale eye opening: Spontaneous Don coma scale verbal response: Orientated Don coma scale motor response: Obey commands [place] coma scale total score: 15 COMMON NORMALS: patient oriented x3, moves all extremities, no focal motor deficits, no sensory deficits noted and gait normal SENSORIUM/ORIENTATION: Yes alert, Yes oriented to person, Yes oriented to place and Yes oriented to time Skin: COMMON NORMALS: no rashes or lesions noted GENERAL SKIN EXAM: no rashes or lesions noted Course Vital Signs: Vital signs: Vital Signs Temperature 97.5 F L 03/31/24 11:32 Pulse Rate 86 03/31/24 13:30 Respiratory Rate 24 H 03/31/24 13:48 Blood Pressure 161/100 03/31/24 13:30 Pulse Oximetry 100 03/31/24 13:48 Oxygen Delivery Me thod Room Air 03/31/24 13:30 MDM - Male Medical Decision Making Patient here for right lower abdominal pain and inguinal pain. Patient states before pain began there he was experiencing right flank pain. Initial concern for a kidney/ureter stone. Blood work overall is unremarkable. His UA is unremarkable. CT scan did not show a renal or ureteral calculi. Few other incidental findings. He does have a known small umbilical hernia that is reducible on exam. He has no tenderness here. Small incidental fat-containing inguinal hernias. No herniated bowel. No evidence for obstruction. Ultrasound imaging of his testicles performed given his significant inguinal discomfort to evaluate for torsion. This was unremarkable. Patient was given multiple IV opiate pain medications and continues to have significant discomfort. I did speak to him about hospitalization for pain control but he declines. We spoke about having general surgery come and consult on patient that he declines as well. Will attempt to send him home with pain/nausea medications and I would like him to follow-up with primary care within 48 hours for reevaluation. He does have a history of ulcers this I will recommend he not take the ibuprofen and ketorolac that he has listed on his medications. Strict return to ED precautions given. Medical Records I reviewed the patient's medical records. Lab Data I reviewed the patient's lab results. 03/31/24 12:35 03/31/24 12:35 Radiology Impressions Abdomen/Pelvis CT 03/31/24 11:49 IMPRESSION: 1. No hydronephrosis in either kidney. No obstructing renal or ureteral calculi. 2. Hepatomegaly. 3. Fat-containing umbilical hernia with a small amount of induration. 4. Incidental fat-containing inguinal hernias. No herniated bowel. Laboratory Results WBC 11.62 10^3/uL (3.29-11.43) H 03/31/24 12:35 RBC 4.84 10^6/uL (3.85-5.65) 03/31/24 12:35 Hgb 15.10 g/dL (11.27-16.99) 03/31/24 12:35 Hct 43.8 % (37-53) 03/31/24 12:35 MCV 90.5 fl (82-101) 03/31/24 12:35 MCH 31.2 pg (27-33) 03/31/24 12:35 MCHC 34.5 g/dL (30-55) 03/31/24 12:35 RDW 12.9 % (12.1-15.1) 03/31/24 12:35 Plt Count 238 10^3/cmm (157-399) 03/31/24 12:35 MPV 10.6 fL (7.4-10.4) H 03/31/24 12:35 Neut % (Auto) 78.6 % 03/31/24 12:35 Lymph % (Auto) 14.4 % 03/31/24 12:35 [place] % (Auto) 6.3 % 03/31/24 12:35 Eos % (Auto) 0.2 % 03/31/24 12:35 Baso % (Auto) 0.2 % 03/31/24 12:35 Neut # (Auto) 9.15 10^3/uL (1.8-7.7) H 03/31/24 12:35 Lymph # (Auto) 1.7 10^3/uL (0.8-4.8) 03/31/24 12:35 [place] # (Auto) 0.7 10^3/uL (0.2-0.9) 03/31/24 12:35 Eos # (Auto) 0.0 10^3/uL (0.0-0.8) 03/31/24 12:35 Baso # (Auto) 0.0 10^3/uL (0.0-0.1) 03/31/24 12:35 Nucleated RBC % (auto) 0 % 03/31/24 12:35 Nucleated RBCs # 0.0 /100WBC 03/31/24 12:35 Sodium 141 mmol/L (136-145) 03/31/24 12:35 Potassium 4.4 mmol/L (3.5-5.1) 03/31/24 12:35 Chloride 108 mmol/L (98-107) H 03/31/24 12:35 Carbon Dioxide 20 mmol/L (22-29) L 03/31/24 12:35 Anion Gap 17.4 (5-19) 03/31/24 12:35 BUN 11 mg/dL (6-20) 03/31/24 12:35 Creatinine 1.1 mg/dL (0.7-1.2) 03/31/24 12:35 GFR Calculation 69.5 mL/min (90-130) L 03/31/24 12:35 Glucose 124 mg/dL (65-115) H 03/31/24 12:35 Calculated Osmolality 293 mOsm/kg (285-295) 03/31/24 12:35 Calcium 8.5 mg/dL (8.5-10.5) 03/31/24 12:35 Total Bilirubin 0.5 mg/dL (0.15-1.2) 03/31/24 12:35 AST 15 U/L (0-40) 03/31/24 12:35 ALT 21 U/L (0-41) 03/31/24 12:35 Alkaline Phosphatase 94 U/L (40-130) 03/31/24 12:35 Total Protein 6.5 g/dL (6.6-8.7) L 03/31/24 12:35 Albumin 4.3 g/dL (3.5-5.2) 03/31/24 12:35 Globulin 2.2 g/dL (1.3-4.6) 03/31/24 12:35 Urine Color Yellow (Yellow) 03/31/24 14:00 Urine Appearance Clear (CLEAR) 03/31/24 14:00 Urine pH 8.5 (5-7) A 03/31/24 14:00 Ur Specific [place] 1.021 (1.005-1.030) 03/31/24 14:00 Urine Protein Trace (Negative) A 03/31/24 14:00 Urine Glucose (UA) Negative (Normal) 03/31/24 14:00 Urine Ketones Trace (Negative) 03/31/24 14:00 Urine Blood Negative (Negative) 03/31/24 14:00 Urine Nitrate Negative (Negative) 03/31/24 14:00 Urine Bilirubin Negative (Negative) 03/31/24 14:00 Urine Urobilinogen 1.0 mg/dL (Negative) 03/31/24 14:00 Ur Leukocyte Esterase Negative (Negative) 03/31/24 14:00 Urine RBC 0-2 /hpf (0-2) 03/31/24 14:00 Urine WBC 0-5 /hpf (0-5) 03/31/24 14:00 Ur Squamous Epith Cells 0-5 /hpf (0-5) 03/31/24 14:00 Amorphous Sediment Not Reportable 03/31/24 14:00 Urine Bacteria None seen /hpf (NONE) 03/31/24 14:00 Hyaline Casts 0.81 /lpf 03/31/24 14:00 All radiology interpretation(s) finalized by discharge Discharge Plan Discharge Patient Disposition: Home Clinical Impression: Intractable right lower quadrant abdominal pain, Severe right inguinal pain Condition: Stable Prescriptions: New hydrocodone-acetaminophen 5-325 mg tablet 1 tab PO .q 4-6 PRN (Reason: pain) Qty: 20 0RF ondansetron 4 mg tablet,disintegrating 4 mg PO Q8H PRN (Reason: nausea and vomiting) Qty: 14 0RF Discontinued ketorolac 10 mg tablet 10 mg PO Q8H PRN (Reason: pain) Qty: 7 0RF Rx Instructions: maximum total duration of 5 days from all oral, intranasal, or parenteral formulations ibuprofen 800 mg tablet 800 mg PO BID PRN (Reason: pain) 30 Days Qty: 60 0RF No Action medical THC 1 unit as directed PRN docusate sodium 100 mg capsule 100 mg PO BID 90 Days Qty: 180 1RF albuterol sulfate 90 mcg/actuation HFA aerosol inhaler 1 - 2 puff inhalation Q4H PRN (Reason: Shortness Of Breath Or Wheezing) Rx Instructions: 340 b Advair Diskus 250-50 mcg/dose blister with device 1 inh inhalation BID tizanidine 4 mg tablet 4 mg PO BID PRN (Reason: muscle spasms) trazodone 100 mg tablet 100 mg PO BEDTIME PRN (Reason: Insomnia) Protonix 40 mg Tablet,Delayed Release (Dr/Ec) 40 mg PO DAILY Discharge Orders: Discharge ED (Routine); Ordered 03/31/24 Ordered By: Doris Miranda Referrals: Mario Monique, MEDIA TECHNICIAN [Primary Care Provider] - Patient Instructions: Abdominal Pain (ED), Opioid Safety, Pain Management Activity Restrictions/Additional Instructions: As we discussed, we did not find an etiology for your abdominal/inguinal pain today. I have offered evaluation from general surgery as well as admission to the hospital for pain control but you have declined. Like we spoke about, I would like you to follow-up with a medical provider in 48 hours for reevaluation. He may take pain/nausea medications as needed. If pain worsens or if you start developing fevers, repetitive episodes of vomiting, inability to urinate, inability to pass flatulence or stool, generally feeling worse or unwell, you need to return to the emergency department for reevaluation. 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
[2024-03-31] MEDS: sodium chloride 0.9% 1,000 ML 999 ML IV (12:03)
[2024-03-31] MEDS: HYDROmorphone 1 mg/mL INJ 1 mL IVP (12:05)
[2024-03-31] MEDS: ondansetron 2 mg/ML SDV 2 mL 4 MG IVP (12:05)
[2024-03-31] MEDS: morphine 4 mg/mL SDV 1 mL IVP (12:31)
[2024-03-31 12:44] LABS: Basophils % 0.2 %; Eosinophils % 0.2 %; Hematocrit 43.8 % (37-53); Lymphocytes # 1.7 10^3/uL (0.8-4.8); Lymphocytes % 14.4 %; Mean Corpuscular HGB Conc 34.5 g/dL (30-55); Mean Corpuscular Hemoglobin 31.2 pg (27-33); Mean Corpuscular Volume 90.5 fl (82-101); Mean Platelet Volume 10.6 fL (7.4-10.4); Monocytes # 0.7 10^3/uL (0.2-0.9); Monocytes % 6.3 %; Neutrophils # 9.15 10^3/uL (1.8-7.7); Neutrophils % 78.6 %; Nucleated Red Blood Cells % 0 %; Platelet Count 238 10^3/cmm (157-399); Red Blood Count 4.84 10^6/uL (3.85-5.65); Red Cell Distribution Width 12.9 % (12.1-15.1); White Blood Count 11.62 10^3/uL (3.29-11.43)
[2024-03-31 13:09] LABS: Alanine Aminotransferase 21 U/L (0-41); Albumin Level 4.3 g/dL (3.5-5.2); Alkaline Phosphatase 94 U/L (40-130); Anion Gap 17.4 (5-19); Aspartate Amino Transferase 15 U/L (0-40); Blood Urea Nitrogen 11 mg/dL (6-20); Calcium 8.5 mg/dL (8.5-10.5); Carbon Dioxide 20 mmol/L (22-29); Chloride 108 mmol/L (98-107); Creatinine Clr Calc Pharmacy 87.4332; Globulin 2.2 g/dL (1.3-4.6); Glomerular Filtration Rate 69.5 mL/min (90-130); Glucose 124 mg/dL (65-115); Osmolality Calculated 293 mOsm/kg (285-295); Potassium 4.4 mmol/L (3.5-5.1); Sodium 141 mmol/L (136-145); Total Bilirubin 0.5 mg/dL (0.15-1.2); Total Protein 6.5 g/dL (6.6-8.7)
--- NOTE | 2024-03-31 13:32 | US_ITS ---
WS: [id number] SCROTAL ULTRASOUND EXAMINATION CLINICAL INFORMATION: R testicular pain COMPARISON: None. FINDINGS: TESTES Normal in size and echotexture, without focal lesion. Color Doppler: Normal color Doppler flow pattern. Right testes size: 3.6 cm x 2.3 cm x 2.4 cm. Left testes size: 3.6 cm x 2.6 cm x 2.5 cm. EPIDIDYMIDES Normal in size and echotexture, without focal lesion. Color Doppler: Normal color Doppler flow pattern. Right epididymis size: 0.5 cm x 0.5 cm x 0.8 cm. Left epididymis size: 0.6 cm x 0.9 cm x 0.6 cm. HYDROCELE None. VARICOCELE None. OTHER FINDINGS None. US/US scrotum [id number] IMPRESSION: Normal testicular ultrasound
[2024-03-31] MEDS: fentaNYL 50 mcg/mL INJ 2mL 75 MCG IVP (13:48)
[2024-03-31 14:15] LABS: Bacteria Urine None Seen /hpf; Hyaline Casts Urine 0.81 /lpf; RBC Urine 0-2 /hpf (0-2); Squamous Epithelial Cell Urine 0-5 /hpf (0-5); WBC Urine 0-5 /hpf (0-5)
[2024-03-31 14:29] LABS: Add Urine Microscopic? YES; Bilirubin Urine Negative (Negative); Blood Urine Negative (Negative); Glucose Urine UA Negative (Normal); Ketones Urine Trace (Negative); Leukocyte Esterase Urine Negative (Negative); Nitrate Urine Negative (Negative); Protein Urine Trace (Negative); Specific Gravity, Urine 1.021 (1.005-1.030); Urine Appearance Clear (CLEAR); Urine Color Yellow (Yellow); pH Urine 8.5 (5-7)
== END 2024-03-31 15:26 | disposition home or self-care (01) ==
PROVIDERS: Emergency Provider Physician Assistant; PCP Nurse Practitioner Family
DX: R10.31 Right lower quadrant pain (principal); E78.2 Mixed hyperlipidemia; I10 Essential (primary) hypertension
CPT/HCPCS: 74176; 76870; 80053; 81001; 85025; 96361; 96374; 96375; 99285; J1170; J2270; J2405; J3010; J7030

== ENCOUNTER 2024-04-03 11:10 | Emergency (ER) | payer BC, SELFPAY ==
[2024-04-03 11:45] VITALS: BP 111/82; PULSE 97; RESP 16; TEMP 36.7; O2SAT 98; BMI 26.4
[2024-04-03 12:36] LABS: Basophils % 0.2 %; Eosinophils # 0.2 10^3/uL (0.0-0.8); Eosinophils % 1.5 %; Hematocrit 47.9 % (37-53); Lymphocytes # 2.1 10^3/uL (0.8-4.8); Lymphocytes % 21.2 %; Mean Corpuscular HGB Conc 34.9 g/dL (30-55); Mean Corpuscular Hemoglobin 31.8 pg (27-33); Mean Corpuscular Volume 91.2 fl (82-101); Mean Platelet Volume 10.2 fL (7.4-10.4); Monocytes # 0.8 10^3/uL (0.2-0.9); Monocytes % 8.1 %; Neutrophils # 6.63 10^3/uL (1.8-7.7); Neutrophils % 68.5 %; Nucleated Red Blood Cells % 0 %; Platelet Count 238 10^3/cmm (157-399); Red Blood Count 5.25 10^6/uL (3.85-5.65); Red Cell Distribution Width 12.6 % (12.1-15.1); White Blood Count 9.68 10^3/uL (3.29-11.43)
[2024-04-03 13:00] LABS: Alanine Aminotransferase 28 U/L (0-41); Albumin Level 4.6 g/dL (3.5-5.2); Alkaline Phosphatase 106 U/L (40-130); Anion Gap 18.3 (5-19); Aspartate Amino Transferase 21 U/L (0-40); Blood Urea Nitrogen 11 mg/dL (6-20); Calcium 9.2 mg/dL (8.5-10.5); Carbon Dioxide 24 mmol/L (22-29); Chloride 103 mmol/L (98-107); Creatinine Clr Calc Pharmacy 72.3346; Globulin 2.7 g/dL (1.3-4.6); Glomerular Filtration Rate 57.3 mL/min (90-130); Glucose 113 mg/dL (65-115); Lipase 15 U/L (13-60); Osmolality Calculated 292 mOsm/kg (285-295); Potassium 4.3 mmol/L (3.5-5.1); Sodium 141 mmol/L (136-145); Total Bilirubin 0.5 mg/dL (0.15-1.2); Total Protein 7.3 g/dL (6.6-8.7)
--- NOTE | 2024-04-03 13:02 | CT_ITS ---
WS: [id number] CT THORACIC SPINE TECHNIQUE: Noncontrast CT of the thoracic spine with coronal and sagittal reformatted images. CLINICAL INFORMATION: severe R abdominal/groin pain COMPARISON: None. DLP: 817.[address] scans at [facility] use at least one of these dose optimization techniques: automated e xposure control; mA and/or kV adjustment per patient size (includes targeted exams where dose is matc hed to clinical indication); or iterative reconstruction. FINDINGS: Mild thoracic kyphosis. Mild spondylitic changes. Mild disc space narrowing in the midthoracic spine. No acute compression fractures. Spinal canal appears patent. Slight subsegmental atelectasis in the lung bases. Aortic calcification. Calcified subcarinal lymph nodes. Normal GE junction. Adrenal gland s are normal. CT/CT thoracic spin wo con* [id number] IMPRESSION: No acute thoracic spine findings
--- NOTE | 2024-04-03 13:02 | CT_ITS ---
WS: [id number] CT LUMBAR SPINE TECHNIQUE: Noncontrast CT of the lumbar spine with coronal and sagittal reformatted images. CLINICAL INFORMATION: severe R abdominal/groin pain COMPARISON: None. DLP: 754.[address] scans at [facility] use at least one of these dose optimization techniques: automated e xposure control; mA and/or kV adjustment per patient size (includes targeted exams where dose is matc hed to clinical indication); or iterative reconstruction. FINDINGS: Mild lumbar curve. No acute compression fractures. L1-L2: Mild annular bulging. Mild facet arthropathy. Spinal canal and foramen are patent. L2-L3: Mild annular bulging. Mild facet arthropathy. Spinal canal and foramen are patent. L3-L4: Disc osteophyte complex with endplate ridging. Mild facet arthropathy. Spinal canal foramina a re patent. L4-L5: Disc osteophyte complex with endplate ridging. Spinal canal and foramina are patent. Mild face t arthropathy. L5-S1: Mild disc bulging with osteophytic ridging. Spinal canal and foramen are patent. Slight efface ment of the ventral thecal sac. Mild facet arthropathy. Visualized pelvic bony structures: Normal. Paravertebral soft tissues: Normal. Adrenal glands are normal. CT/CT lumbar spine wo con* [id number] IMPRESSION: 1. No acute lumbar spine findings 2. Disc space narrowing worse at L3-L4 L4-L5
--- NOTE | 2024-04-03 13:03 | W.ED.BACK ---
HPI - Back Pain/Injury General: Chief Complaint: Back Pain/Injury Stated Complaint: Pain lower back around to front Time Seen by Provider: 04/03/24 12:48 Source: patient Mode of arrival: ambulatory Limitations: no limitations History of Present Illness: Patient is a nice 54-year-old male who presents to the ED today with continued right back/right abdominal pain. Patient was initially seen in the clinic on 03/31 and referred to the emergency department for concern of a possible kidney/ureter stone. I saw him on his emergency visit. He told me a few days earlier he began developing some right flank pain that had since radiated around into his abdomen and groin. Patient had blood work, UA, CT of his abdomen and pelvis performed which were unremarkable. Due to his continued discomfort I did order an ultrasound of his testicles to rule out torsion which was unremarkable. Patient followed up with his primary care provider today. He states his pain has not improved. Primary care was concerned that origin could be radicular from his back. He was referred back to the emergency department. He arrives with completely stable vital signs. Patient tells me he has continued to have right back/flank/abdominal and groin pain. He is not having any vomiting. He is having normal stools and passing flatulence. He has not developed any fever. He does feel like the groin pain is better than when I last saw him. No urinary issues. No chest pain, shortness of breath, or difficulty breathing. MD elicited complaint: back pain and other (abdominal) Onset (ago): day(s) Timing: constant Severity: severe Similar Symptoms Previously: No Location: right flank, right lower back and right upper back Radiation: abdomen Relieving factors: none Associated symptoms: Reports no associated symptoms and abdominal pain; Deny chills, change in bowel habits, difficulty walking, dysuria, fatigue, fever(s), nausea, syncope, urinary urgency or vomiting Work related injury: No Related Data Home Medications Medication Instructions Recorded Confirmed medical THC 1 unit as directed PRN 01/15/20 04/03/24 albuterol sulfate 90 mcg/actuation 1 - 2 puff inhalation Q4H PRN 03/31/24 04/03/24 aerosol inhaler Shortness Of Breath Or Wheezing fluticasone 250 mcg-salmeterol 50 1 inh inhalation BID 03/31/24 04/03/24 mcg/dose blistr powdr for inhalation (Advair Diskus) pantoprazole 40 mg tablet,delayed 40 mg PO DAILY 03/31/24 04/03/24 release (Protonix) trazodone 100 mg tablet 100 mg PO BEDTIME PRN Insomnia 03/31/24 04/03/24 Previous Rx's Medication Instructions Recorded docusate sodium 100 mg capsule 100 mg PO BID 90 days #180 caps 02/14/24 ondansetron 4 mg disintegrating 4 mg PO Q8H PRN nausea and 03/31/24 tablet vomiting #14 tabs dexamethasone 6 mg tablet 6 mg PO DAILY #6 tabs 04/03/24 hydrocodone 5 mg-acetaminophen 325 1 tab PO .q 4-6 PRN pain #14 tabs 04/03/24 mg tablet tizanidine 4 mg tablet 4 mg PO BID PRN muscle spasms #14 04/03/24 tabs Allergies Allergy/AdvReac Type Severity Reaction Status Date / Time hydrocodone Allergy RASH / Verified 04/03/24 11:45 ITCHING oxycodone Allergy ADR-Itching Verified 04/03/24 11:45 zolpidem [From Ambien] Allergy unknown Verified 04/03/24 11:45 Review of Systems Const: Denies: fever(s), chills, body aches, fatigue or malaise Card: Denies: chest pain, palpitations, irregular heart rhythm, edema, swelling of feet/ankles, lightheadedness, syncope, pre-syncope, dyspnea on exertion, orthopnea, leg pain with exertion or acrocyanosis Resp: Denies: dyspnea, productive cough, non-productive cough, wheezing, pain on inspiration, hemoptysis or chest congestion GI: Reports: abdominal pain; Denies: nausea, vomiting, diarrhea, constipation, bloating, GI cramping, change in bowel habits or melena : Reports: flank pain; Denies: difficulty urinating, dysuria, urinary frequency, urinary urgency or urinary hesitancy Musc: Reports: back pain and other (R groin); Denies: neck pain, extremity pain, extremity swelling, joint pain or joint swelling Skin/Breast: Denies: rash Neuro: Denies: headache(s), numbness in extremities, weakness in extremities, sensory changes, difficulty walking or dizziness [facility] ED PFSH: Medical History (Updated 04/03/24 @ 14:51 by MARIA ESTHER Mejía) Lumbar radiculopathy, right Colon polyps Acute bacterial sinusitis Gastroesophageal reflux disease SI (sacroiliac) joint dysfunction Opioid contract exists Abdominal pain Lower respiratory infection Ventral hernia Medication management Tinea capitis Arthritis Muscle spasm Lumbar disc disease Medication management Vitamin D deficiency Mixed hyperlipidemia Constipation Essential hypertension Hip pain Surgical History History of colonoscopy 2019 History of esophagogastroduodenoscopy 2019 History of right knee surgery History of decompression of ulnar nerve Family History Mother Cancer Sister Cancer Other Diabetes Denies family history of Dementia Social History Smoking and tobacco/nicotine status: unknown if used tobacco/nicotine Second hand smoke exposure: No Alcohol intake: never Substance/Drug Use: current Substance/Drug use frequency: daily Other substance/drug use details: Medical THC 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 Marital status: Current occupational status: employed Physical Exam Const: COMMON NORMALS: no acute distress, average body habitus, patient oriented x3, no limitations, healthy appearing, alert and well nourished GENERAL APPEARANCE: cooperative ORIENTATION/CONSCIOUSNESS: Yes awake, Yes oriented to person, Yes oriented to place and Yes oriented to time Neck/C-Spine: COMMON NORMALS: full ROM; negative for no meningeal signs GENERAL: Yes normal visual inspection Chest: COMMONS NORMALS: normal inspection of the chest and normal palpation of entire chest wall Resp: COMMON NORMALS: normal respiratory effort and clear to auscultation bilaterally AUSCULTATION: clear to auscultation bilaterally Cardio: COMMON NORMALS: regular rate and regular rhythm RATE: regular rate RHYTHM: regular rhythm GI: COMMON NORMALS: Normal to inspection, nondistended, normoactive bowel sounds present, Soft to palpation, No hepatosplenomegaly present and no masses INSPECTION: Yes normal to inspection AUSCULTATION: Yes normoactive bowel sounds PALPATION: Yes Soft to palpation, Yes Tenderness to palpation present (GI) Details: RLQ and Yes No hepatosplenomegaly present : BLADDER/KIDNEY EXAM: Yes CVA tenderness Back/Pelvis: COMMON NORMALS: thoracic and lumbar spine normal to inspection GENERAL BACK: Yes CVA tenderness THORACIC SPINE/UPPER BACK: Yes thoracic spinal tenderness and Yes paraspinal muscle tenderness Thoracic paraspinal muscle tenderness: right LUMBAR SPINE/LOWER BACK: Yes lumbar spinal tenderness, Yes paraspinal muscle tenderness Lumbar paraspinal muscle tenderness: right and Yes straight leg raise negative bilaterally PELVIS: Yes buttocks normal and No sciatic notch tenderness SACROILIAC JOINTS: Yes SI joints normal SACRUM: no tenderness COCCYX: no tenderness Extremity: COMMON NORMALS: normal to inspection, capillary refill normal, no clubbing, cyanosis or edema, no calf tenderness and no pedal edema GENERAL: Yes normal exam except as noted Neuro: DON COMA SCALE: document GCS findings Don coma scale eye opening: Spontaneous [place] coma scale verbal response: Orientated Don coma scale motor response: Obey commands Don coma scale total score: 15 COMMON NORMALS: patient oriented x3, moves all extremities, no focal motor deficits, no sensory deficits noted and gait normal SENSORIUM/ORIENTATION: Yes alert, Yes oriented to person, Yes oriented to place and Yes oriented to time MENINGEAL SIGNS: No no meningeal signs Skin: COMMON NORMALS: no rashes or lesions noted GENERAL SKIN EXAM: no rashes or lesions noted Course Vital Signs: Vital signs: Vital Signs Temperature 98.1 F 04/03/24 11:45 Pulse Rate 89 04/03/24 13:50 Respiratory Rate 16 04/03/24 13:50 Blood Pressure 115/79 04/03/24 13:50 Pulse Oximetry 96 04/03/24 13:50 Oxygen Delivery Me thod Room Air 04/03/24 13:50 MDM - Back Pain/Injury Medical Decision Making Patient's exam has not overly changed since I last saw him 3 days ago. He does appear slightly less uncomfortable than when I saw him last. He is having more back discomfort now than when I saw him. He arrives with completely stable vital signs. His white count today is completely normal. His chemistry is unremarkable apart from a very slight bump in his creatinine at 1.3. His UA is clear. CT imaging of his thoracic and lumbar spine showing no acute findings. Again, I am at a loss for the etiology of his discomfort. Will attempt to treat him this time with steroids and muscle relaxers and continue his opiate pain medication as he stated this did somewhat dull his discomfort. I would like him to follow-up with primary care early tomorrow for re-evaluation. Return to ED precautions given. Medical Records I reviewed the patient's medical records. Labs I reviewed the patient's lab results. 04/03/24 12:28 04/03/24 12:28 Radiology Impressions Lumbar Spine CT 04/03/24 13:02 IMPRESSION: 1. No acute lumbar spine findings 2. Disc space narrowing worse at L3-L4 L4-L5 Thoracic Spine CT 04/03/24 13:02 IMPRESSION: No acute thoracic spine findings Laboratory Results WBC 9.68 10^3/uL (3.29-11.43) 04/03/24 12:28 RBC 5.25 10^6/uL (3.85-5.65) 04/03/24 12:28 Hgb 16.70 g/dL (11.27-16.99) 04/03/24 12:28 Hct 47.9 % (37-53) 04/03/24 12:28 MCV 91.2 fl (82-101) 04/03/24 12: MCH 31.8 pg (27-33) 04/03/24 12:28 MCHC 34.9 g/dL (30-55) 04/03/24 12:28 RDW 12.6 % (12.1-15.1) 04/03/24 12:28 Plt Count 238 10^3/cmm (157-399) 04/03/24 12:28 MPV 10.2 fL (7.4-10.4) 04/03/24 12:28 Neut % (Auto) 68.5 % 04/03/24 12: Lymph % (Auto) 21.2 % 04/03/24 12:28 [place] % (Auto) 8.1 % 04/03/24 12:28 Eos % (Auto) 1.5 % 04/03/24 12:28 Baso % (Auto) 0.2 % 04/03/24 12:28 Neut # (Auto) 6.63 10^3/uL (1.8-7.7) 04/03/24 12:28 Lymph # (Auto) 2.1 10^3/uL (0.8-4.8) 04/03/24 12:28 [place] # (Auto) 0.8 10^3/uL (0.2-0.9) 04/03/24 12:28 Eos # (Auto) 0.2 10^3/uL (0.0-0.8) 04/03/24 12:28 Baso # (Auto) 0.0 10^3/uL (0.0-0.1) 04/03/24 12:28 Nucleated RBC % (auto) 0 % 04/03/24 12:28 Nucleated RBCs # 0.0 /100WBC 04/03/24 12:28 Sodium 141 mmol/L (136-145) 04/03/24 12:28 Potassium 4.3 mmol/L (3.5-5.1) 04/03/24 12:28 Chloride 103 mmol/L (98-107) 04/03/24 12:28 Carbon Dioxide 24 mmol/L (22-29) 04/03/24 12:28 Anion Gap 18.3 (5-19) 04/03/24 12:28 BUN 11 mg/dL (6-20) 04/03/24 12:28 Creatinine 1.3 mg/dL (0.7-1.2) H 04/03/24 12:28 GFR Calculation 57.3 mL/min (90-130) L 04/03/24 12:28 Glucose 113 mg/dL (65-115) 04/03/24 12:28 Calculated Osmolality 292 mOsm/kg (285-295) 04/03/24 12:28 Calcium 9.2 mg/dL (8.5-10.5) 04/03/24 12:28 Total Bilirubin 0.5 mg/dL (0.15-1.2) 04/03/24 12:28 AST 21 U/L (0-40) 04/03/24 12:28 ALT 28 U/L (0-41) 04/03/24 12:28 Alkaline Phosphatase 106 U/L (40-130) 04/03/24 12:28 Total Protein 7.3 g/dL (6.6-8.7) 04/03/24 12:28 Albumin 4.6 g/dL (3.5-5.2) 04/03/24 12:28 Globulin 2.7 g/dL (1.3-4.6) 04/03/24 12:28 Lipase 15 U/L (13-60) 04/03/24 12:28 Urine Color Yellow (Yellow) 04/03/24 13:09 Urine Appearance Clear (CLEAR) 04/03/24 13:09 Urine pH 5 (5-7) 04/03/24 13:09 Ur Specific [place] 1.025 (1.005-1.030) 04/03/24 13:09 Urine Protein Trace (Negative) 04/03/24 13:09 Urine Glucose (UA) Norm (Normal) 04/03/24 13:09 Urine Ketones Negative (Negative) 04/03/24 13:09 Urine Blood Neg (Negative) 04/03/24 13:09 Urine Nitrate Negative (Negative) 04/03/24 13:09 Urine Bilirubin Neg (Negative) 04/03/24 13:09 Urine Urobilinogen 1 mg/dL (Negative) H 04/03/24 13:09 Ur Leukocyte Esterase Negative (Negative) 04/03/24 13:09 Urine RBC None /hpf (0-2) 04/03/24 13:09 Urine WBC 0-4 /hpf (0-5) H 04/03/24 13:09 Ur Squamous Epith Cells None /hpf (0-5) 04/03/24 13:09 Amorphous Sediment Not Reportable 04/03/24 13:09 Urine Bacteria Trace /hpf (NONE) 04/03/24 13:09 Urine Mucus 3+ /hpf 04/03/24 13:09 All radiology interpretation(s) finalized by discharge Discharge Plan Discharge Patient Disposition: Home Clinical Impression: Acute right-sided back pain Qualifiers: Back pain location: thoracic back pain Qualified Code(s): M54.6 - Pain in thoracic spine Condition: Stable Prescriptions: New dexamethasone 6 mg tablet 6 mg PO DAILY Qty: 6 0RF Continued hydrocodone-acetaminophen 5-325 mg tablet 1 tab PO .q 4-6 PRN (Reason: pain) Qty: 14 0RF tizanidine 4 mg tablet 4 mg PO BID PRN (Reason: muscle spasms) Qty: 14 0RF No Action medical THC 1 unit as directed PRN docusate sodium 100 mg capsule 100 mg PO BID 90 Days Qty: 180 1RF albuterol sulfate 90 mcg/actuation HFA aerosol inhaler 1 - 2 puff inhalation Q4H PRN (Reason: Shortness Of Breath Or Wheezing) Rx Instructions: 340 b Advair Diskus 250-50 mcg/dose blister with device 1 inh inhalation BID trazodone 100 mg tablet 100 mg PO BEDTIME PRN (Reason: Insomnia) Protonix 40 mg Tablet,Delayed Release (Dr/Ec) 40 mg PO DAILY ondansetron 4 mg tablet,disintegrating 4 mg PO Q8H PRN (Reason: nausea and vomiting) Qty: 14 0RF Discharge Orders: Discharge ED (Routine); Ordered 04/03/24 Ordered By: Doris Miranda Referrals: Mario Monique FNP [Primary Care Provider] - Patient Instructions: Opioid Safety, Pain Management Activity Restrictions/Additional Instructions: As we discussed, I would like primary care to follow-up with you early next week for reevaluation. You need to return to the emergency department for worsening pain, repetitive episodes of vomiting or diarrhea, inability to have a bowel movement or pass gas, inability to urinate, blood in your urine, fevers, generally feeling worse or unwell, or any other concerns you may have. Coding Level of Care Code ED Senior Facilities Manager for Camelia Florez
[2024-04-03] MEDS: morphine 4 mg/mL SDV 1 mL IVP (13:46)
[2024-04-03] MEDS: ondansetron 2 mg/ML SDV 2 mL 4 MG IVP (13:46)
[2024-04-03 13:50] VITALS: BP 115/79; PULSE 89; RESP 16; O2SAT 96
[2024-04-03 14:10] LABS: Blood Urine Neg (Negative); Glucose Urine UA Norm (Normal); Ketones Urine Negative (Negative); Protein Urine Trace (Negative); Specific Gravity, Urine 1.025 (1.005-1.030); Urine Appearance Clear (CLEAR); Urine Color Yellow (Yellow); pH Urine 5 (5-7)
[2024-04-03 14:11] LABS: Add Urine Microscopic? YES; Bacteria Urine TRACE /hpf; Bilirubin Urine Neg (Negative); Leukocyte Esterase Urine Negative (Negative); Nitrate Urine Negative (Negative); Urobilinogen Urine 1 mg/dL (Negative); WBC Urine 0-4 /hpf (0-5)
[2024-04-03 14:12] LABS: Mucus Urine 3+ /hpf
[2024-04-03] MEDS: dexamethasone 4 mg/mL INJ 8 MG IVP (14:56)
[2024-04-03 15:08] VITALS: BP 151/89; PULSE 98; RESP 16; O2SAT 96
== END 2024-04-03 15:08 | disposition home or self-care (01) ==
PROVIDERS: Emergency Provider Physician Assistant; PCP Nurse Practitioner Family
DX: M54.6 Pain in thoracic spine (principal); E78.2 Mixed hyperlipidemia; I10 Essential (primary) hypertension
CPT/HCPCS: 36415; 72128; 72131; 80053; 81001; 83690; 85025; 96374; 96375; 99285; J1100; J2270; J2405

== ENCOUNTER → 2024-06-25 16:21 | Outpatient (BNVA) | payer BC, SELFPAY | PROVIDERS: PCP Nurse Practitioner Family; Visit Provider Nurse Practitioner Family | DX: S67.20XA Crushing injury of unspecified hand, initial encounter (principal); X58.XXXA Exposure to other specified factors, initial encounter | CPT/HCPCS: 73130 ==

== ENCOUNTER → 2025-01-06 16:12 | Outpatient (BNVA) | payer BC, SELFPAY | PROVIDERS: PCP Nurse Practitioner Family; Visit Provider Emergency Medicine | DX: K86.89 Other specified diseases of pancreas (principal) | CPT/HCPCS: 80053; 83690; 85025; 86301 ==

== ENCOUNTER 2025-02-12 11:11 | Outpatient (CLI) | payer BC, SELFPAY ==
--- NOTE | 2025-02-12 11:45 | MR_ITS ---
WS: [id number] MRI/MRCP OF THE ABDOMEN WITHOUT GADOLINIUM ENHANCEMENT TECHNIQUE: Coronal T2 Fase BH, Axial T2 Fase BH, Axial T2 FS BH, Zxial 3D Koehler BH, Axial DWI BH, 2D MRCP Radial BH, 3D MRCP (Resp), and Axial 3D Dyn BH Post sequences. CLINICAL INFORMATION: K86.89 - Other specified diseases of pancreas COMPARISON: Outside CT 12/19/2024 and 12/10/2024 FINDINGS: Hepatomegaly. Fatty liver. Small esophageal hiatal hernia. Adrenal glands are normal. Normal pancreatic parenchymal enhancement. No definite pancreatic mass visualized. No bile duct dilatation. No intrahepatic biliary duct dilatation. Gallbladder appears normal. Normal portal vein and splenic vein. No hydronephrosis in either kidney. Normal caliber upper abdominal aorta. MR/MR abdomen wo/w con* [id number] Impression: 1. Hepatomegaly. Fatty liver. 2. Small esophageal hiatal hernia. 3. No visualized pancreatic mass or lesion. Normal pancreatic parenchyma enhan cement. 4. No pancreatic ductal dilatation. 5. No bile duct dilatation. 6. No hydronephrosis in either kidney.
[2025-02-12] MEDS: gadobenate dimeglumine 20 mL vial IV (13:01)
== END 2025-02-12 11:12 | disposition home or self-care (01) ==
LOC: RAD 11:12
PROVIDERS: PCP Nurse Practitioner Family; Visit Provider Nurse Practitioner Family
DX: K86.89 Other specified diseases of pancreas (principal); K76.0 Fatty (change of) liver, not elsewhere classified; K44.9 Diaphragmatic hernia without obstruction or gangrene
CPT/HCPCS: 74183